=== PATIENT | female | born 1975 | race Caucasian/White ===

== ENCOUNTER 2017-04-12 14:43 | Emergency (ER) | payer BC, OTHER ==
[~2017-04-12] VITALS: Ht 162.6 cm; Wt 67.8 kg
[~2017-04-12 14:43] MED LIST: DEPOPROVERA; notes
[2017-04-12 14:47] VITALS: TEMP 37.1; Ht 162.6 cm; Wt 67.8 kg
[2017-04-12] MEDS ORDERED: SODIUM CHLORIDE 0.9% 1000ML 2,000 ML IV STA (16:22)
[2017-04-12] MEDS ORDERED: DiphenhydrAMINE HCL 50 MG/ML VIAL IV STA (16:22)
[2017-04-12] MEDS ORDERED: METOCLOPRAMIDE HCL INJ 5 MG/ML 2 ML VIAL IV STA (16:22)
--- NOTE | 2017-04-12 16:33 | EMERGENCY ROOM VISIT NOTE ---
History Report prepared by Lilly: Shane Alatorre Under the Supervision of: Dr. Serge Han M.D. First contact with patient: 16:12 Chief Complaint: HEADACHE Stated Complaint: SEVERE HEADACHE FOR 5DAYS History of Present Illness The patient is a 42 year old female who presents to the Emergency Room with complaints of a headache that started 5 days ago. She states her headache came on slowly and felt a pop in her head while she was at the [place]. She complains of nausea and neck pain. She denies nasal congestion, fevers, chills, vomiting, and dysuria. She took Tylenol 3 hours ago and Codeine with minimal improvement of headache. Of note, the patient states she has had limited dietary intake for the past few days. The patient states she has a history of a concussion and was in rehab. Source of History: patient Onset: 5 days ago Position: head Quality: ache Timing: constant Associated Symptoms: + neck pain, + nausea, No fevers, No chills, No vomiting, No urinary symptoms Note: Patient denies nasal congestion. Review of Systems See HPI for pertinent positives and negatives. A total of ten systems were reviewed and were otherwise negative. Past Medical & Surgical Medical Problems: (1) Concussion Surgical Problems: (1) [place] teeth extracted Family History Patient reports no known family medical history. Social History Smoking Status: Never Smoker Drug Use: none Marital Status: Housing Status: lives with family Occupation Status: employed, student Current/Historical Medications Scheduled Medroxyprogesterone Acetate (Depo-Provera), 1 DOSE INJ UD Scheduled PRN Acetaminophen (Tylenol), 1-2 TAB PO Q8 PRN for Headache Allergies Coded Allergies: Sulfa Drugs (Unverified Allergy, Severe, "SENSITIVE", 04/06/12) Physical Exam Vital Signs Date Time Temp Pulse Resp B/P (MAP) Pulse Ox O2 Delivery O2 Flow Rate FiO2 04/12/17 18:26 90 16 110/72 100 04/12/17 17:01 90 04/12/17 17:00 93 16 114/74 100 Room Air 04/12/17 14:47 37.1 106 18 122/74 99 Room Air Physical Exam GENERAL: Awake, alert, uncomfortable appearing, in no distress HENT: Normocephalic, atraumatic. Dry mucous membranes. EYES: Normal conjunctiva. Sclera non-icteric. NECK: Supple. No nuchal rigidity. FROM. No JVD. RESPIRATORY: Clear to auscultation. CARDIAC: Regular rate, normal rhythm. Extremities warm and well perfused. Pulses equal. ABDOMEN: Soft, non-distended. No tenderness to palpation. No rebound or guarding. No masses. RECTAL: Deferred. MUSCULOSKELETAL: Chest examination reveals no tenderness. The back is symmetrical on inspection without obvious abnormality. There is no CVA tenderness to palpation. No joint edema. LOWER EXTREMITIES: Calves are equal size bilaterally and non-tender. No edema. No discoloration. NEURO: Normal sensorium. No sensory or motor deficits noted. Intact. Normal cerebellar function with oxbpij-pi-[id number], alternating palms, zrfe-ic-vjev SKIN: No rash or jaundice noted. Medical Decision & Procedures ER Provider Diagnostic Interpretation: Radiology results as stated below per my review and radiologist interpretation: HEAD CT NONCONTRAST CT DOSE: 537.48 mGy.cm HISTORY: headache TECHNIQUE: Multiaxial CT images of the head were performed without the use of intravenous contrast. Automated exposure control was utilized for this study. A dose lowering technique was utilized adhering to the principles of ALARA. Comparison: None. Findings: The paranasal sinuses and mastoid air cells are clear. The calvarium and skull base are intact. The ventricles and sulci are within normal limits. There is no mass, hematoma, midline shift, or acute infarct. Impression: No acute intracranial abnormality. Electronically signed by: Vipin Krause M.D. 04/12/2017 5:28 PM Dictated Date/Time: 04/12/2017 5:25 PM Laboratory Results 04/12/17 16:46 Red Blood Count 4.43, Mean Corpuscular Volume 93.0, Mean Corpuscular Hemoglobin 30.9, Mean Corpuscular Hemoglobin Concent 33.3, Mean Platelet Volume 11.7, Neutrophils (%) (Auto) 77.3, Lymphocytes (%) (Auto) 13.2, Monocytes (%) (Auto) 7.9, Eosinophils (%) (Auto) 0.7, Basophils (%) (Auto) 0.7, Neutrophils # (Auto) 4.68, Lymphocytes # (Auto) 0.80, Monocytes # (Auto) 0.48, Eosinophils # (Auto) 0.04, Basophils # (Auto) 0.04 04/12/17 16:46 Test 04/12/17 16:46 White Blood Count 6.05 K/uL (4.8-10.8) Red Blood Count 4.43 M/uL (4.2-5.4) Hemoglobin 13.7 g/dL (12.0-16.0) Hematocrit 41.2 % (37-47) Mean Corpuscular Volume 93.0 fL (80-100) Mean Corpuscular Hemoglobin 30.9 pg (25-34) Mean Corpuscular Hemoglobin Concent 33.3 g/dl (32-36) Platelet Count 204 K/uL (130-400) Mean Platelet Volume 11.7 fL (7.4-10.4) Neutrophils (%) (Auto) 77.3 % Lymphocytes (%) (Auto) 13.2 % Monocytes (%) (Auto) 7.9 % Eosinophils (%) (Auto) 0.7 % Basophils (%) (Auto) 0.7 % Neutrophils # (Auto) 4.68 K/uL (1.4-6.5) Lymphocytes # (Auto) 0.80 K/uL (1.2-3.4) Monocytes # (Auto) 0.48 K/uL (0.11-0.59) Eosinophils # (Auto) 0.04 K/uL (0-0.5) Basophils # (Auto) 0.04 K/uL (0-0.2) RDW Standard Deviation 47.3 fL (36.4-46.3) RDW Coefficient of Variation 13.8 % (11.5-14.5) Immature Granulocyte % (Auto) 0.2 % Immature Granulocyte # (Auto) 0.01 K/uL (0.00-0.02) Anion Gap 6.0 mmol/L (3-11) Est Creatinine Clear Calc Drug Dose 72.3 ml/min Estimated GFR () 84.5 Estimated GFR (Non- 72.9 BUN/Creatinine Ratio 4.4 (10-20) Calcium Level 8.8 mg/dl (8.5-10.1) Laboratory results reviewed by me Medications Administered Medications (Trade) Dose Ordered Sig/Sherlyn Route Start Time Stop Time Status Last Admin Dose Admin Sodium Chloride 2,000 ml @ 999 mls/hr Q2H1M STAT IV 04/12/17 16:22 04/12/17 18:22 DC 04/12/17 16:58 999 MLS/HR Metoclopramide HCl (Reglan Inj) 10 mg NOW STAT IV 04/12/17 16:22 04/12/17 16:24 DC 04/12/17 16:59 10 MG Diphenhydramine HCl (Benadryl Inj) 25 mg NOW STAT IV 04/12/17 16:22 04/12/17 16:24 DC 04/12/17 16:58 25 MG Dexamethasone Sodium Phosphate (Dexamethasone Inj Pf) 10 mg NOW ONCE IV 04/12/17 18:15 04/12/17 18:16 DC 04/12/17 18:25 10 MG ED Course 161: The patient was evaluated in room C5. A complete history and physical exam was performed. 1802: I checked on the patient and she is doing well. 1811: I reevaluated the patient. Discussed results and discharge instructions: She verbalized understanding and agreement. The patient is ready for discharge. Medical Decision I reviewed the patient's past medical history, medications, and the nursing notes as described above. The patient's presentation and history were concerning for acute intracranial bleed, trauma, meningitis, encephalitis, increased intracranial pressure, mass or mass effect, facial or dental infection, temporal arteritis, CVA, TIA, acute hypertensive emergency, sinusitis, and carbon monoxide exposure. The patient is a 42-year-old woman with a past medical history of concussion remotely who presents emergency Department with progressive headache over the past several days that his been constant with associated neck pain per hpi. Patient was seen by her PCP who sent her to the emergency department for a CT scan. On arrival the patient is uncomfortable but no acute distress, afebrile with stable vital signs. On exam the patient is neurologically intact including normal cerebellar function with jtuuat-ec-vwug, alternating palms, lban-bn-svyv. Labs unremarkable including wbc wnl. Neck supple and afebrile. Meningitis not likely. Slow progression making SAH less likely. CT head negative. Patient feeling significantly improved after IV fluids and migraine cocktail. Given additional dose of dexamethasone for further anti-inflammatory effect. Patient agreeable for discharge and will follow-up with her doctor. Findings and plan for follow-up reviewed with patient. Patient agreeable and d/c 'd per discharge instructions. Medication Reconcilliation Current Medication List: was personally reviewed by me Blood Pressure Screening Patient's blood pressure: Normal blood pressure Blood pressure disposition: Did not require urgent referral Impression Primary Impression: Tension headache Scribe Attestation The scribe's documentation has been prepared under my direction and personally reviewed by me in its entirety. I confirm that the note above accurately reflects all work, treatment, procedures, and medical decision making performed by me. Departure Information Dispostion Home / Self-Care Referrals No Doctor, Assigned (PCP) Patient Instructions ED Headache Tension, My [facility] Additional Instructions Please follow up with your primary care physician in the next 1-3 days for re- evaluation. You likely had a tension headache, which may have been provoked by mild dehydration. Otherwise, your exam, lab results, CT scan of your head did not show signs of an emergent condition at this time. Acetaminophen or ibuprofen for pain and fevers as needed. Drink plenty of fluids to ensure hydration. Return to the emergency department for worsening symptoms as described in the accompanying instructions.
[2017-04-12] MEDS ORDERED: DPPI400 INJ (16:53)
[2017-04-12] MEDS ORDERED: ACET-1256 PO (16:53)
[2017-04-12 17:09] LABS: BASO % 0.7 %; BASO ABS # 0.04 K/uL (0-0.2); EOS % 0.7 %; EOS ABS # 0.04 K/uL (0-0.5); HEMATOCRIT 41.2 % (37-47); HEMOGLOBIN 13.7 g/dL (12.0-16.0); IG# 0.01 K/uL (0.00-0.02); LYMPH % 13.2 %; MEAN CORPUSCULAR HEMOGLOBIN 30.9 pg (25-34); MEAN CORPUSCULAR HGB CONC 33.3 g/dl (32-36); MEAN PLATELET VOLUME 11.7 fL (7.4-10.4); MONO % 7.9 %; MONO ABS # 0.48 K/uL (0.11-0.59); NEUT % 77.3 %; NEUT ABS # 4.68 K/uL (1.4-6.5); PLATELET COUNT 204 K/uL (130-400); RED CELL DISTRIBUTION WIDTH CV 13.8 % (11.5-14.5); RED CELL DISTRIBUTION WIDTH SD 47.3 fL (36.4-46.3); WHITE BLOOD COUNT 6.05 K/uL (4.8-10.8)
[2017-04-12 17:26] LABS: CALCIUM 8.8 mg/dl (8.5-10.1); CREATININE 0.96 mg/dl (0.60-1.20); POTASSIUM 3.4 mmol/L (3.5-5.1)
--- NOTE | 2017-04-12 17:29 | DIAGNOSTIC IMAGING REPORT ---
HEAD CT NONCONTRAST CT DOSE: 537.48 mGy.cm HISTORY: headache TECHNIQUE: Multiaxial CT images of the head were performed without the use of intravenous contrast. Automated exposure control was utilized for this study. A dose lowering technique was utilized adhering to the principles of ALARA. Comparison: None. Findings: The paranasal sinuses and mastoid air cells are clear. The calvarium and skull base are intact. The ventricles and sulci are within normal limits. There is no mass, hematoma, midline shift, or acute infarct. Impression: No acute intracranial abnormality. Electronically signed by: Vipin Krause M.D. 04/12/2017 5:28 PM Dictated Date/Time: 04/12/2017 5:25 PM
[2017-04-12] MEDS ORDERED: DEXAMETHASONE **PF** INJ 10 MG/ML VIAL IV ONE (18:15)
[2017-04-12 18:26] VITALS: BP 110/72; PULSE 90; O2SAT 100
== END 2017-04-12 18:27 | disposition home or self-care (01) ==
LOC: C.EDB 14:44 → C.EDC 18:27
DX: G44.209 Tension-type headache, unspecified, not intractable (principal)

== ENCOUNTER → 2017-04-18 | Outpatient (CLI) | payer OTHER ==
[~2017-04-18] MED LIST changes: +ACET-1256 PO; -DEPOPROVERA; +DPPI400 INJ; -notes
--- NOTE | 2017-04-18 13:36 | DIAGNOSTIC IMAGING REPORT ---
TWO VIEW CHEST CLINICAL HISTORY: Cough. Hyperhydrosis. Nausea. Dizziness. FINDINGS: PA and lateral chest radiographs are compared to study dated 08/18/2006. The cardiomediastinal silhouette is unremarkable. The lungs and pleural spaces are clear. There is no pneumothorax. The bony thorax appears intact. IMPRESSION: No active disease in the chest. Electronically signed by: Jules Alberto M.D. 04/18/2017 1:35 PM Dictated Date/Time: 04/18/2017 1:34 PM
== END | disposition home or self-care (01) ==
LOC: C.RAD 12:54
PROVIDERS: ATTEND Nurse Practitioner Family
DX: R05 Cough (principal); R61 Generalized hyperhidrosis; R11.0 Nausea; R42 Dizziness and giddiness; R51 Headache

== ENCOUNTER → 2017-04-21 | Outpatient (CLI) | payer OTHER ==
--- NOTE | 2017-04-21 11:25 | DIAGNOSTIC IMAGING REPORT ---
BRAIN WITHOUT CONTRAST HISTORY: 42 years-old Female MAE,DIZZINESS,NAUSEA,GENERALIZED HYPERHIDROSIS chronic headaches with nausea and dizziness COMPARISON: MRI brain 04/06/2012 TECHNIQUE: Planar multiplanar multisequence MRI of the brain was obtained without contrast. FINDINGS: There is no restricted diffusion to suggest acute infarction. The midline structures including the corpus callosum, brainstem, optic chiasm, infundibulum, pituitary and pineal glands appear unremarkable the sagittal T1 series. No cerebellar tonsillar herniation. Minimal degenerative changes of the imaged cervical spine. No acute intracranial hemorrhage, midline shift, abnormal extra-axial collections, intracranial mass or hydrocephalus. Minimal punctate foci of T2/FLAIR prolongation are seen within the subcortical white matter of the frontal lobes as seen on image 6 and 8 of series 7. Brain parenchyma otherwise unremarkable. The major flow voids at the level of the skull base appear patent. Orbits appear symmetric and unremarkable. Mastoid air cells are clear. Minimal ethmoid sinus disease. Hypoplasia of the right frontal sinus. Scalp, calvarium and soft tissues are unremarkable. IMPRESSION: 1. No acute intracranial abnormality. 2. Minimal punctate foci of increased T2/FLAIR signal within the subcortical frontal lobes are likely of no clinical significance. Gliosis from chronic migraines is a differential consideration. The above report was generated using voice recognition software. It may contain grammatical, syntax or spelling errors. Electronically signed by: Mauricio Gonzalez M.D. 04/21/2017 11:24 AM Dictated Date/Time: 04/21/2017 11:19 AM
== END | disposition home or self-care (01) ==
LOC: C.MRI 10:53
PROVIDERS: ATTEND Nurse Practitioner Family
DX: R51 Headache (principal); R42 Dizziness and giddiness; R11.0 Nausea; R61 Generalized hyperhidrosis

== ENCOUNTER → 2017-05-19 | Outpatient (CLI) | payer OTHER ==
--- NOTE | 2017-05-19 08:56 | DIAGNOSTIC IMAGING REPORT ---
ABDOMINAL ULTRASOUND, RIGHT UPPER QUADRANT HISTORY: ELEVATED LIVER ENZYMES,ENLARGED LIVER. COMPARISON: Abdomen and pelvis CT 07/24/2013. FINDINGS: Pancreas: The pancreatic tail is obscured by overlying bowel gas. The remaining portions of the pancreas are within normal limits. Liver: Unremarkable. Gallbladder: No gallbladder wall thickening. No gallstones. A few small polyps with the largest measuring 7 mm. CBD: 5 mm. Right kidney: No hydronephrosis. IMPRESSION: 1. A few small gallbladder polyps. No gallstones. 2. Otherwise, normal abdominal ultrasound. Electronically signed by: Vipin Krause M.D. 05/19/2017 8:54 AM Dictated Date/Time: 05/19/2017 8:52 AM
== END | disposition home or self-care (01) ==
LOC: C.ULTR 08:13
PROVIDERS: ATTEND Nurse Practitioner Family
DX: R74.8 Abnormal levels of other serum enzymes (principal); K82.4 Cholesterolosis of gallbladder

== ENCOUNTER 2022-08-20 14:13 | Observation (INO) ==
[2022-08-20] MEDS ORDERED: ONDANSETRON INJ 2 MG/ML 2 ML VIAL IV STA (14:35)
[2022-08-20] MEDS ORDERED: MoRPHine SULFATE 4 MG/ML 1 ML CARP\\VIAL IV STA (14:35)
[2022-08-20] MEDS ORDERED: SODIUM CHLORIDE 0.9% 1000ML 1,000 ML IV ONE (14:35)
[2022-08-20 14:59] LABS: Basophils # (auto) 0.04 K/uL (0-0.2); Basophils % (auto) 0.5 %; Eosinophils # (auto) 0.03 K/uL (0-0.50); Eosinophils % (auto) 0.4 %; Hematocrit (blood only) 41.1 % (37.0-47.0); Hemoglobin 13.6 g/dl (12.0-16.0); Immature Granulocytes # (auto) 0.04 K/uL (0.01-0.20); Immature Granulocytes % (auto) 0.5 %; Lymphocytes # (auto) 0.77 K/uL (1.2-3.4); Lymphocytes % (auto) 9.3 %; Mean Corpuscular Hemoglobin 29.5 pg (25.0-34.0); Mean Corpuscular Hgb Conc 33.1 g/dL (32.0-36.0); Mean Corpuscular Volume 89.2 fL (80.0-100.0); Mean Platelet Volume 12.6 fL (9.4-12.4); Monocytes # (auto) 0.38 K/uL (0.11-0.59); Monocytes % (auto) 4.6 %; Neutrophils # (auto) 7.03 K/uL (1.40-6.50); Neutrophils % (auto) 84.7 %; Platelet Count 206 K/uL (130-400); RDW Coefficient of Variation 12.8 % (11.5-14.5); RDW Standard Deviation 41.8 fL (36.4-46.3); Red Blood Count 4.61 M/uL (4.20-5.40); White Blood Count 8.29 K/ul (4.8-10.8)
[2022-08-20 15:00] LABS: iSTAT Creatinine 0.7 mg/dl (0.6-1.3); iSTAT Hemoglobin 12.2 g/dl (12.0-16.0); iSTAT Ionized Calcium 1.11 mmol/l (1.12-1.32); iSTAT Potassium 3.9 mmol/L (3.3-5.0)
[2022-08-20 15:04] LABS: Alanine Aminotransferase 248 U/L (7-52); Albumin Level 4.4 gm/dl (3.4-5.0); Alkaline Phosphatase 107 U/L (34-104); Anion Gap 9 (3-11); Aspartate Aminotransferase 250 U/L (13-39); BUN Creatinine Ratio 9.2 (10-20); Bilirubin Direct 0.1 mg/dl (0-0.2); Bilirubin,Total 0.7 mg/dl (0.2-1.0); Blood Urea Nitrogen 8 mg/dl (6-23); Calcium 9.1 mg/dl (8.6-10.3); Carbon Dioxide 22 mmol/L (21-32); Chloride 103 mmol/L (98-107); Est GFR (African American) 91.9 ml/min; Est GFR (Non-African American) 79.3 ml/min; Glucose 133 mg/dl (70-99(Fasting)); Lipase 17 U/L (11-82); Potassium 3.7 mmol/L (3.5-5.1); Sodium 134 mmol/L (136-145); Total Protein 7.2 gm/dl (6.0-8.3)
[2022-08-20] MEDS ORDERED: fentaNYL citrate PF 100 MCG/2 ML VIAL IV STA (15:05)
[2022-08-20] MEDS ORDERED: OPTIRAY 320 500ml IV ONE (15:21)
[2022-08-20 15:24] LABS: Partial Thromboplastin Ratio 0.9; Partial Thromboplastin Time 24.9 Seconds (21.0-31.0); Prothrombin Time 10.9 Seconds (9.0-12.0)
--- NOTE | 2022-08-20 15:27 | Emergency Department Note ---
History of Present Illness General Chief Complaint: Cardiac Assessment Time Seen by Provider: 08/20/22 14:31 History of Present Illness Provider Complaint: abdominal pain Onset (ago): 30 minute(s) Pain Consistency: constant Location: epigastric Radiation: back and chest Severity: severe Maximum Pain Intensity: 10 Current Pain Intensity: 9 Quality: + stabbing and + sharp Relieved By: + nothing Exacerbated By: + nothing Context: + recent surgery/procedure (Patient had laparoscopic removal of her gallbladder [address] Garrido at [facility]); no foreign travel, no possible food poisoning, no sick contacts, no recent antibiotic use or no recent injury Associated Symptoms: + nausea and + vomiting; no diarrhea, no fever, no chills, no dysuria, no hematemesis, no hematochezia, no melena and no hematuria Related Data Patient Confirmed : No Home Medications Medication Instructions Recorded Confirmed Type medroxyprogesterone 150 mg/mL 150 mg IM .[id number] 08/28/18 07/07/22 History intramuscular syringe clonazepam 0.5 mg tablet 0.25 mg PO DAILY PRN Anxiety 12/16/19 07/07/22 History meclizine 25 mg tablet 25 mg PO DIRECTED PRN 12/16/19 07/07/22 History DIZZINESS/VERTIGO loperamide 2 mg capsule 2 mg PO Q6H PRN Diarrhea 07/07/22 07/07/22 History ondansetron 8 mg disintegrating 4 mg translingual Q8H PRN 07/07/22 07/07/22 History tablet NAUSEA/VOMITING Allergies Allergy/AdvReac Type Severity Reaction Status Date / Time Sulfa (Sulfonamide Allergy Severe "SENSITIVE" Verified 07/07/22 21:49 Antibiotics) amoxicillin Allergy Intermediate ITCHY RASH Verified 07/07/22 21:49 AFTER 4 DAYS OF STARTING Past Med/Surg History Medical History Closed fracture of lateral portion of left tibial plateau Dizziness of unknown etiology High-frequency hearing loss of left ear History of anemia Hydronephrosis with renal and ureteral calculus obstruction Renal colic Renal colic Seasonal allergies Surgical History Rosser teeth extracted Family History Grandfather (Paternal) No problems noted. 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 How many Children do You have: 3 Feels Safe at Home: Yes during the past year weight has: remained stable Physical Exam Vital Signs: Vital Signs - 24 hr 08/20/22 14:20 08/20/22 14:24 08/20/22 15:10 Temperature 36.5 C Temperature Source Oral Pulse Rate 75 72 Pulse Rate [Apical ] 83 Pulse Rhythm Pulse Rhythm [Apic al] Pulse Strength [Ap ical] Respiratory Rate 22 20 Respiratory Effort / Characteristics Non-Labored Sponta neous Respiratory Depth Normal Respiratory Patter n Regular Blood Pressure 101/60 Blood Pressure [Ri ght Arm] 126/79 Blood Pressure Ellen n 73 Blood Pressure Ellen n [Right Arm] 94 Blood Pressure Pos ition Semi-fowlers Pulse Oximetry 99 97 Oxygen Delivery Me thod Room Air Room Air Sepsis Recent Feve r Within 48 Hours No Sepsis New/Unexpla ined Change in Men nataly Status N/A Sepsis Action Take n by Nursing No Action Required 08/20/22 15:00 08/20/22 16:20 08/20/22 16:45 Temperature Temperature Source Pulse Rate Pulse Rate [Apical ] 92 H 93 H Pulse Rhythm Pulse Rhythm [Apic al] Pulse Strength [Ap ical] Respiratory Rate 20 18 Respiratory Effort / Characteristics Spontaneous Respiratory Depth Normal Respiratory Patter n Blood Pressure Blood Pressure [Ri ght Arm] 131/75 118/72 Blood Pressure Ellen n Blood Pressure Ellen n [Right Arm] 93 87 Blood Pressure Pos ition Pulse Oximetry 98 98 Oxygen Delivery Me thod Room Air Room Air Room Air Sepsis Recent Feve r Within 48 Hours Sepsis New/Unexpla ined Change in Men nataly Status Sepsis Action Take n by Nursing 08/20/22 15:31 08/20/22 15:31 Temperature Temperature Source Pulse Rate 107 H Pulse Rate [Apical ] 106 H Pulse Rhythm Regular Pulse Rhythm [Apic al] Regular Pulse Strength [Ap ical] Normal Respiratory Rate 20 24 Respiratory Effort / Characteristics Non-Labored Sponta neous Respiratory Depth Normal Respiratory Patter n Regular Blood Pressure Blood Pressure [Ri ght Arm] 123/57 L Blood Pressure Ellen n Blood Pressure Ellen n [Right Arm] 79 Blood Pressure Pos ition Pulse Oximetry 98 97 Oxygen Delivery Me thod Room Air Room Air Sepsis Recent Feve r Within 48 Hours Sepsis New/Unexpla ined Change in Men nataly Status Sepsis Action Take n by Nursing Physical Exam: Physical Exam HENT: Exam performed. -Head: Normocephalic and atraumatic. -Right Ear: External ear normal. No mastoid erythema -Left Ear: External ear normal. No mastoid erythema -Mouth/Throat: The oropharynx is clear and moist. No trismus in the jaw. No dental abscesses or uvula swelling. No oropharyngeal exudate or tonsillar abscesses. EYES: Conjunctivae and EOM are normal.Right eye exhibits no discharge. Left eye exhibits no discharge. No scleral icterus. NECK: Normal range of motion. Neck supple. No JVD present. No tracheal deviation and normal range of motion present. CV: Normal rate, regular rhythm, normal heart sounds and intact distal pulses. There is no peripheral edema. Palpable radial pulses bue. PULM/CHEST: Effort normal and breath sounds normal. No respiratory distress. No stridor. She has no wheezes. She has no rales. -Chest Wall: She exhibits no tenderness. ABD: Laparoscopic surgical incisions are clean and dry over the anterior abdominal wall. The abdomen is soft. She has no distension.There is tenderness to palpation of the left upper quadrant and epigastric area. NEURO: Motor and sensation grossly intact. SKIN: Skin is warm and dry. She is not diaphoretic. PSYCH: She has a normal mood and affect. Behavior is normal. Judgment and thought content normal. Course Course 1431: The patient was evaluated in room B2. A complete history and physical exam was performed Cardiac monitoring: An order was placed for continuous cardiac monitoring. The monitor shows a rate of 70 with sinus rhythm interpreted by me 1634: Vital signs stable. On reassessment the patient states her pain was better status post morphine and fentanyl however pain is starting to come back. Labs show AST 250 ALT 248 alkaline phosphatase 107. Lipase within normal limits. White blood cell count within normal limits. CTA of the chest showed no pulmonary emboli or pneumonia. CT of the abdomen pelvis showed trace pneumoperitoneum which was thought to be postsurgical. There is a small amount of perihepatic operative bed fluid which is reported to be most likely normal in the early postoperative setting however a bile leak is also on the differential. The common bile duct was top normal in caliber. I discussed the case with Dr. Thornton on-call general surgery. Given the patient's increased liver function tests and nearly elevated common bile duct diameter as well as continued pain both he and I feel that the patient should be admitted to the hospital. He recommends that the patient be admitted to the medicine team with a GI consult for possible MRCP and HIDA scan to make sure that there are no choledocholithiasis or bile leak. We will contact [facility] hospitalist for the admission. Administered Medications Discontinued Medications Fentanyl Citrate (Fentanyl Citrate Pf 100 Mcg/2 Ml Vial) 25 mcg IV NOW STA Stop: 08/20/22 15:06 Last Admin: 08/20/22 15:09 Dose: 25 mcg Documented By: ROSA Hydromorphone HCl (Hydromorphone Inj 0.5 Mg/0.5 Ml Syr) 0.5 mg IV NOW STA Stop: 08/20/22 16:34 Last Admin: 08/20/22 16:51 Dose: 0.5 mg Documented By: ROSA Sodium Chloride (Nss 1000ml) 1,000 mls @ 999 mls/hr IV .Q1H1M ONE Stop: 08/20/22 15:35 Last Infusion: 08/20/22 15:48 Dose: 0 mls/hr Documented By: Admin: 08/20/22 14:48 Dose: 999 mls/hr Documented By: Ioversol (Optiray 320 500ml) 112 ml IV ONCE ONE Stop: 08/20/22 15:22 Last Admin: 08/20/22 15:21 Dose: 112 ml Documented By: NACHO Morphine Sulfate (Morphine Sulfate 4 Mg/Ml 1 Ml Carp\\Vial) 4 mg IV NOW STA Stop: 08/20/22 14:36 Last Admin: 08/20/22 14:47 Dose: 4 mg Documented By: Ondansetron HCl (Ondansetron Inj 2 Mg/Ml 2 Ml Vial) 4 mg IV NOW STA Stop: 08/20/22 14:36 Last Admin: 08/20/22 14:47 Dose: 4 mg Documented By: AB Medical Decision Making Laboratory Data Attestation: I reviewed the patient's lab results. 08/20/22 14:00 08/20/22 14:00 Lab Results 08/20/22 08/20/22 08/20/22 Range/Units 14:00 14:00 14:00 WBC 8.29 (4.8-10.8) K/ul RBC 4.61 (4.20-5.40) M/uL Hgb 13.6 (12.0-16.0) g/dl POC Hgb (12.0-16.0) g/dl Hct 41.1 (37.0-47.0) % POC Hct (37-47) % MCV 89.2 (80.0-100.0) fL MCH 29.5 (25.0-34.0) pg MCHC 33.1 (32.0-36.0) g/dL RDW Std Deviation 41.8 (36.4-46.3) fL RDW Coeff of Karl 12.8 (11.5-14.5) % Plt Count 206 (130-400) K/uL MPV 12.6 H (9.4-12.4) fL Immature Gran % (Auto) 0.5 % Neut % (Auto) 84.7 % Lymph % (Auto) 9.3 % [place] % (Auto) 4.6 % Eos % (Auto) 0.4 % Baso % (Auto) 0.5 % Neut # (Auto) 7.03 H (1.40-6.50) K/uL Lymph # (Auto) 0.77 L (1.2-3.4) K/uL [place] # (Auto) 0.38 (0.11-0.59) K/uL Eos # (Auto) 0.03 (0-0.50) K/uL Baso # (Auto) 0.04 (0-0.2) K/uL Immature Gran # (Auto) 0.04 (0.01-0.20) K/uL PT 10.9 (9.0-12.0) Seconds INR 1.0 (0.9-1.1) APTT 24.9 (21.0-31.0) Seconds PTT Ratio 0.9 POC Sodium (135-144) mmol/L Sodium 134 L (136-145) mmol/L POC Potassium (3.3-5.0) mmol/L Potassium 3.7 (3.5-5.1) mmol/L POC Chloride (101-112) mmol/L Chloride 103 (98-107) mmol/L Carbon Dioxide 22 (21-32) mmol/L POC Total CO2 (24-31) mmol/L Anion Gap 9 (3-11) POC Anion Gap (16-25) mmol/L POC BUN (7-18) mg/dl BUN 8 (6-23) mg/dl Creatinine 0.87 (0.6-1.2) mg/dl POC Creatinine (0.6-1.3) mg/dl Est Cr Clr Drug Dosing Not Reportable Est GFR ( Amer) 91.9 ml/min Est GFR (Non-Af Amer) 79.3 ml/min BUN/Creatinine Ratio 9.2 L (10-20) Glucose 133 H (70-99(Fasting)) mg/dl POC Glucose (other) (70-99) mg/dl Calcium 9.1 (8.6-10.3) mg/dl POC Ioniz Calcium Rin (1.12-1.32) mmol/l Total Bilirubin 0.7 (0.2-1.0) mg/dl Direct Bilirubin 0.1 (0-0.2) mg/dl AST 250 H (13-39) U/L ALT 248 H (7-52) U/L Alkaline Phosphatase 107 H (34-104) U/L Total Protein 7.2 (6.0-8.3) gm/dl Albumin 4.4 (3.4-5.0) gm/dl Lipase 17 (11-82) U/L 08/20/22 Range/Units 14:44 WBC (4.8-10.8) K/ul RBC (4.20-5.40) M/uL Hgb (12.0-16.0) g/dl POC Hgb 12.2 (12.0-16.0) g/dl Hct (37.0-47.0) % POC Hct 36 L (37-47) % MCV (80.0-100.0) fL MCH (25.0-34.0) pg MCHC (32.0-36.0) g/dL RDW Std Deviation (36.4-46.3) fL RDW Coeff of Karl (11.5-14.5) % Plt Count (130-400) K/uL MPV (9.4-12.4) fL Immature Gran % (Auto) % Neut % (Auto) % Lymph % (Auto) % [place] % (Auto) % Eos % (Auto) % Baso % (Auto) % Neut # (Auto) (1.40-6.50) K/uL Lymph # (Auto) (1.2-3.4) K/uL [place] # (Auto) (0.11-0.59) K/uL Eos # (Auto) (0-0.50) K/uL Baso # (Auto) (0-0.2) K/uL Immature Gran # (Auto) (0.01-0.20) K/uL PT (9.0-12.0) Seconds INR (0.9-1.1) APTT (21.0-31.0) Seconds PTT Ratio POC Sodium 136 (135-144) mmol/L Sodium (136-145) mmol/L POC Potassium 3.9 (3.3-5.0) mmol/L Potassium (3.5-5.1) mmol/L POC Chloride 103 (101-112) mmol/L Chloride (98-107) mmol/L Carbon Dioxide (21-32) mmol/L POC Total CO2 22 L (24-31) mmol/L Anion Gap (3-11) POC Anion Gap 16.0 (16-25) mmol/L POC BUN 7 (7-18) mg/dl BUN (6-23) mg/dl Creatinine (0.6-1.2) mg/dl POC Creatinine 0.7 (0.6-1.3) mg/dl Est Cr Clr Drug Dosing Est GFR ( Amer) ml/min Est GFR (Non-Af Amer) ml/min BUN/Creatinine Ratio (10-20) Glucose (70-99(Fasting)) mg/dl POC Glucose (other) 144 H (70-99) mg/dl Calcium (8.6-10.3) mg/dl POC Ioniz Calcium Rin 1.11 L (1.12-1.32) mmol/l Total Bilirubin (0.2-1.0) mg/dl Direct Bilirubin (0-0.2) mg/dl AST (13-39) U/L ALT (7-52) U/L Alkaline Phosphatase (34-104) U/L Total Protein (6.0-8.3) gm/dl Albumin (3.4-5.0) gm/dl Lipase (11-82) U/L Imaging Data Radiologist's Impression: Abdomen/Pelvis CT 08/20/22 14:36 CT OF THE ABDOMEN AND PELVIS WITH CONTRAST CLINICAL HISTORY: Postoperative chest and abdominal pain. Cholecystectomy 4 days ago. COMPARISON STUDY: CT of the abdomen and pelvis July 08, 2022. TECHNIQUE: Following IV administration of 112 mL of Optiray, axial images of the abdomen and pelvis were obtained from the lung bases to the proximal femurs. Images were reviewed in the axial, sagittal, and coronal planes. IV contrast was administered without complication. Automated exposure control was utilized for the study. A dose lowering technique was utilized adhering to the principles of ALARA. CT DOSE: 852.51 mGy.cm FINDINGS: Trace pneumoperitoneum under the right hemidiaphragm is postsurgical. There is a small amount of perihepatic/operative bed fluid. No well-defined fluid collection is present. There is no hematoma. Caliber of the common bile duct is at upper limits of normal, measuring 6 mm. This has increased in caliber since CT of July 08, 2022. There is no peripancreatic stranding or fluid. Spleen, adrenal glands are unremarkable. There is a left renal cyst. A few renal lesions are too small to characterize. There is no evidence for a bowel obstruction. The caliber and wall thickness of small and large bowel are normal. The appendix is normal. There is no lymphadenopathy. Major vasculature is patent. There are no hepatic lesions. IMPRESSION: 1. Trace pneumoperitoneum which is postsurgical. Small amount of perihepatic/operative bed fluid. This is also within normal limits in the early postoperative setting. Other etiologies such as a bile leak are within the differential but considered less likely. 2. Top normal caliber common bile duct. This could be correlated with liver function tests. 3. No bowel obstruction. No bowel wall thickening. Normal appendix. ACT 112: Negative or not required by law. Electronically signed by: Adrian Matute M.D. 08/20/2022 4:02 PM Chest CTA 08/20/22 14:36 CT ANGIOGRAPHY OF THE CHEST, PULMONARY EMBOLUS PROTOCOL CLINICAL HISTORY: Postoperative chest and abdominal pain. Evaluate for pulmonary embolus. COMPARISON STUDY: Chest radiograph May 09, 2018. TECHNIQUE: Following IV administration of 112 mL of Optiray, helical axial images of the chest were obtained utilizing the pulmonary embolus protocol. Maximal intensity projections and sagittal and coronal reformats were viewed on an independent 3D workstation. IV contrast was administered without complication. Automated exposure control was utilized for the study. A dose lowering technique was utilized adhering to the principles of ALARA. FINDINGS: No pulmonary emboli are identified. There is no thoracic aortic dissection. The size of the heart is normal. There is no pericardial effusion. No pneumothorax or pleural effusion is present. There is no consolidation to suggest pneumonia. Groundglass opacities favor atelectasis. Trace pneumoperitoneum under the right hemidiaphragm is likely postsurgical. There is trace fluid within the cholecystectomy bed. These findings are better depicted on the CT of the abdomen and pelvis which will be reported separately. 3 mm right renal calculus. No thoracic lymphadenopathy. IMPRESSION: 1. No pulmonary emboli identified. 2. No acute intrathoracic findings. 3. Trace pneumoperitoneum and a small amount of fluid within the cholecystectomy bed. These findings are likely postoperative and better depicted on the CT of the abdomen and pelvis which will be reported separately. ACT 112: Negative or not required by law. Electronically signed by: Adrian Matute M.D. 08/20/2022 3:54 PM ECG Data Attestation: I personally reviewed and interpreted this ECG as follows: Indication: abdominal pain and chest pain Rate (beats per minute): 69 Rhythm: normal sinus Findings: no ST depression, no ST elevation or no prolonged QT MDM Narrative 1431: The patient was evaluated in room B2. A complete history and physical exam was performed Cardiac monitoring: An order was placed for continuous cardiac monitoring. The monitor shows a rate of 70 with sinus rhythm interpreted by me 1634: Vital signs stable. On reassessment the patient states her pain was bet ter status post morphine and fentanyl however pain is starting to come back. Labs show AST 250 ALT 248 alkaline phosphatase 107. Lipase within normal limits. White blood cell count within normal limits. CTA of the chest showed no pulmonary emboli or pneumonia. CT of the abdomen pelvis showed trace pneumoperitoneum which was thought to be postsurgical. There is a small amount of perihepatic operative bed fluid which is reported to be most likely normal in the early postoperative setting however a bile leak is also on the differential. The common bile duct was top normal in caliber. I discussed the case with Dr. Thornton on-call general surgery. Given the patient's increased liver function tests and nearly elevated common bile duct diameter as well as continued pain both he and I feel that the patient should be admitted to the hospital. He recommends that the patient be admitted to the medicine team with a GI consult for possible MRCP and HIDA scan to make sure that there are no choledocholithiasis or bile leak. We will contact [facility] hospitalist for the admission. Impression & Plan Transaminitis, Post-op pain Discharge Plan Visit Data Chief Complaint: Cardiac Assessment ED Provider: Stoney Truong Discharge Problem: Transaminitis, Post-op pain Patient Disposition: Admitted As Inpatient Forms Stand Alone Forms: My [facility] Prescriptions Prescriptions: No Action meclizine 25 mg tablet 25 mg PO DIRECTED PRN (Reason: DIZZINESS/VERTIGO) clonazepam 0.5 mg tablet 0.25 mg PO DAILY PRN (Reason: Anxiety) medroxyprogesterone 150 mg/mL syringe 150 mg IM .[id number] loperamide [Imodium] 2 mg Capsule 2 mg PO Q6H PRN (Reason: Diarrhea) ondansetron 8 mg tablet,disintegrating 4 mg translingual Q8H PRN (Reason: NAUSEA/VOMITING) Referrals Referrals: Mya Carrillo CRNP [Primary Care Provider] -
--- NOTE | 2022-08-20 15:57 | CT Scan Report ---
CT ANGIOGRAPHY OF THE CHEST, PULMONARY EMBOLUS PROTOCOL CLINICAL HISTORY: Postoperative chest and abdominal pain. Evaluate for pulmonary embolus. COMPARISON STUDY: Chest radiograph May 09, 2018. TECHNIQUE: Following IV administration of 112 mL of Optiray, helical axial images of the chest were o btained utilizing the pulmonary embolus protocol. Maximal intensity projections and sagittal and cor onal reformats were viewed on an independent 3D workstation. IV contrast was administered without co mplication. Automated exposure control was utilized for the study. A dose lowering technique was ut ilized adhering to the principles of ALARA. FINDINGS: No pulmonary emboli are identified. There is no thoracic aortic dissection. The size of th e heart is normal. There is no pericardial effusion. No pneumothorax or pleural effusion is present. There is no consolidation to suggest pneumonia. Groundglass opacities favor atelectasis. Trace pneumo peritoneum under the right hemidiaphragm is likely postsurgical. There is trace fluid within the chol ecystectomy bed. These findings are better depicted on the CT of the abdomen and pelvis which will be reported separately. 3 mm right renal calculus. No thoracic lymphadenopathy. IMPRESSION: 1. No pulmonary emboli identified. 2. No acute intrathoracic findings. 3. Trace pneumoperitoneum and a small amount of fluid within the cholecystectomy bed. These findings are likely postoperative and better depicted on the CT of the abdomen and pelvis which will be report ed separately. ACT 112: Negative or not required by law. Electronically signed by: Adrian Matute M.D. 08/20/2022 3:54 PM
--- NOTE | 2022-08-20 16:04 | CT Scan Report ---
CT OF THE ABDOMEN AND PELVIS WITH CONTRAST CLINICAL HISTORY: Postoperative chest and abdominal pain. Cholecystectomy 4 days ago. COMPARISON STUDY: CT of the abdomen and pelvis July 08, 2022. TECHNIQUE: Following IV administration of 112 mL of Optiray, axial images of the abdomen and pelvis w ere obtained from the lung bases to the proximal femurs. Images were reviewed in the axial, sagittal, and coronal planes. IV contrast was administered without complication. Automated exposure control w as utilized for the study. A dose lowering technique was utilized adhering to the principles of LISY Savage. CT DOSE: 852.51 mGy.cm FINDINGS: Trace pneumoperitoneum under the right hemidiaphragm is postsurgical. There is a small amou nt of perihepatic/operative bed fluid. No well-defined fluid collection is present. There is no hemat young. Caliber of the common bile duct is at upper limits of normal, measuring 6 mm. This has increased in caliber since CT of July 08, 2022. There is no peripancreatic stranding or fluid. Spleen, adrena l glands are unremarkable. There is a left renal cyst. A few renal lesions are too small to character ize. There is no evidence for a bowel obstruction. The caliber and wall thickness of small and large bowel are normal. The appendix is normal. There is no lymphadenopathy. Major vasculature is patent. T here are no hepatic lesions. IMPRESSION: 1. Trace pneumoperitoneum which is postsurgical. Small amount of perihepatic/operative bed fluid. Thi s is also within normal limits in the early postoperative setting. Other etiologies such as a bile le ak are within the differential but considered less likely. 2. Top normal caliber common bile duct. This could be correlated with liver function tests. 3. No bowel obstruction. No bowel wall thickening. Normal appendix. ACT 112: Negative or not required by law. Electronically signed by: Adrian Matute M.D. 08/20/2022 4:02 PM
[2022-08-20] MEDS ORDERED: HYDROmorphone INJ 0.5 MG/0.5 ML SYR IV STA (16:33)
[2022-08-20 17:15] LABS: Appearance Urine Clear (Clear); Bacteria Urine Automated Negative (Negative); Bilirubin Urine Negative (Negative); Blood Urine 1+ (Negative); Cast Urine Automated 0 /lpf (0-5); Color Urine Yellow; Epithelial Cell Urine Auto >30 /lpf (0-5); Glucose Urine UA Negative (Negative); Ketones Urine 1+ (Negative); Leukocyte Esterase Urine Negative (Negative); Nitrite Urine Negative (Negative); Protein Urine Negative (Negative); Specific Gravity Urine 1.045 (1.000-1.030); Urobilinogen Urine Negative (Negative); pH Urine 5.5 (4.5-7.5)
[2022-08-20] MEDS ORDERED: oxyCODONE HCL IR 5 MG TAB (IMMEDIATE RELEASE) PO PRN ×2 (19:48)
[2022-08-20] MEDS ORDERED: ONDANSETRON INJ 2 MG/ML 2 ML VIAL IV PRN (19:48)
[2022-08-20] MEDS ORDERED: MoRPHine SULFATE 2 MG/ML CARP IV PRN (19:48)
[2022-08-20] MEDS: SODIUM CHLORIDE 0.9% 1000ML 1,000 ML IV SCH (20:05)
[2022-08-20] MEDS: MoRPHine SULFATE 4 MG/ML 1 ML CARP\\VIAL IV PRN ×2 (20:05→23:00)
[2022-08-21] MEDS: SODIUM CHLORIDE 0.9% 1000ML 1,000 ML IV SCH (05:31)
--- NOTE | 2022-08-21 07:33 | History & Physical Report ---
Date of Service August 21, 2022 Assessment & Plan (1) S/P laparoscopic cholecystectomy: (2) Abdominal pain: Plan: Nancy is a 47-year-old female 5 days s/p outpatient Laparoscopic Cholecystectomy who developed sudden onset of severe abdominal pain 4 days post-op. Nancy remains afebrile. She reports that her abdominal pain is minimal. She denies nausea/vomiting. LFTs elevated on admission. Labs pending for this AM. No indication for emergent surgical intervention at this time. Will continue to monitor closely. Possible HIDA scan if possible today or tomorrow. Will keep patient NPO. Admission and Anticipated Discharge Date Admission Date: August 20, 2022 History of Present Illness Chief Complaint: Abdominal pain s/p Laparoscopic Cholecystectomy Primary Care Provider: VICENTE Tenorio Nancy is a 47-year-old female who underwent outpatient Laparoscopic Cholecystectomy with Dr. Garrido on 08/16/22 at [facility]. Nancy states that she was doing well until 3 days after the procedure she started to feel more tired and started to have several episodes of diarrhea. She states that yesterday, she was sitting in a recliner at home when she developed a sudden stabbing sensation in her chest/epigastric region. She states that she has never felt anything as painful before. The pain made her nauseous, but she did not throw up. She told her to call an ambulance because she was so concerned. She arrived at [facility] ED for evaluation. On arrival, WBC 8.29; Dir Bili 0.1; AST 250; ALT 248; ALK Phos 107. She has been afebrile since arrival. Imaging conducted in ED: CT abdomen/pelvis IMPRESSION: 1. Trace pneumoperitoneum which is postsurgical. Small amount of perihepatic/operative bed fluid. This is also within normal limits in the early postoperative setting. Other etiologies such as a bile leak are within the differential but considered less likely. 2. Top normal caliber common bile duct. This could be correlated with liver function tests. 3. No bowel obstruction. No bowel wall thickening. Normal appendix. Chest CTA: IMPRESSION: 1. No pulmonary emboli identified. 2. No acute intrathoracic findings. 3. Trace pneumoperitoneum and a small amount of fluid within the cholecystectomy bed. These findings are likely postoperative and better depicted on the CT of the abdomen and pelvis which will be reported separately. Currently, Nacny states that her abdominal pain is minimal. She is quick to comment that her abdominal pain feels muscular. Her last dose of pain medication was 4 hrs before I examined her. She denies nausea or vomiting. Allergies Allergy/AdvReac Type Severity Reaction Status Date / Time Sulfa (Sulfonamide Allergy Severe "SENSITIVE" Verified 08/20/22 17:59 Antibiotics) amoxicillin Allergy Intermediate ITCHY RASH Verified 08/20/22 17:59 AFTER 4 DAYS OF STARTING Home Medications Medication Instructions Recorded Confirmed Type medroxyprogesterone 150 mg/mL 150 mg IM .[id number] 08/28/18 08/20/22 History intramuscular syringe clonazepam 0.5 mg tablet 0.25 mg PO DAILY PRN Anxiety 12/16/19 08/20/22 History meclizine 25 mg tablet 25 mg PO DIRECTED PRN 12/16/19 08/20/22 History DIZZINESS/VERTIGO loperamide 2 mg capsule 2 mg PO Q6H PRN Diarrhea 07/07/22 08/20/22 History ondansetron 8 mg disintegrating 4 mg translingual Q8H PRN 07/07/22 08/20/22 History tablet NAUSEA/VOMITING acetaminophen 500 mg tablet 1,000 mg PO Q6H PRN Pain 08/20/22 08/20/22 History (Tylenol Extra Strength) Past Med/Surg History Medical History Closed fracture of lateral portion of left tibial plateau Dizziness of unknown etiology High-frequency hearing loss of left ear History of anemia Hydronephrosis with renal and ureteral calculus obstruction Renal colic Renal colic Seasonal allergies Surgical History [place] teeth extracted Family History Grandfather (Paternal) No problems noted. 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 How many Children do You have: 3 Other Information That Helps Us Care for You: No Feels Safe at Home: Yes Safety Concerns: Feels Safe At This Time during the past year weight has: remained stable Assistive Devices: None Review of Systems Constitutional: no fever and no chills Respiratory: no cough, no chest congestion, no dyspnea, no dyspnea on exertion and no wheezing Cardiovascular: no chest pain, no chest pain at rest, no chest pain with activity, no radiating jaw, neck or arm pain, no dyspnea, no dyspnea at rest, no dyspnea on exertion and no lightheadedness Gastrointestinal: + abdominal pain (improved since arrival. ); no nausea and no vomiting Physical Exam Constitutional: WD/WN, vitals as above Respiratory: normal respiratory effort; no respiratory distress and no labored breathing Gastrointestinal (Abdomen): Nancy is slightly tender with deep palpation in right upper quadrant. Abdomen is soft, not distended. Surgical incisions are clean, dry, intact and well- approximated with Dermabond in place. Results & Data Results & Data Vital Signs (Past 12 Hours) Vital Signs Temp Pulse Resp BP Pulse Ox O2 Del Method 08/21/22 02:18 37 C 72 16 104/62 98 Room Air 08/20/22 21:18 36.9 C 72 16 118/68 99 Room Air 08/20/22 20:18 36.9 C 75 16 124/72 99 Room Air 08/20/22 19:53 36.9 C 87 127/78 100 Room Air Code Status & VTE Plan VTE Prophylaxis Plan VTE Prophylaxis will be ordered: Yes Supervising Physician Co-Signing Physician Notes I personally saw and evaluated the patient with Marge Garrido PA-C and agree with the assessment and plan. 47-year-old female status post laparoscopic cholecystectomy with Dr. Garrido on August 16, 2022, here with postoperative pain CT images and results were personally viewed by myself, very small gallbladder fossa fluid collection and trace pneumoperitoneum She is admitted to the surgical service for observation overnight Her repeat LFTs this morning are improved and she is feeling much better We will trial diet and if she tolerates this we will discharge her home later today with follow-up with Dr. Garrido We are unable to obtain a HIDA scan today which I told her would be the definitive test to rule out a bile leak I do think it is a low likelihood she has a bile leak based on her improving LFTs and clinical picture If she is unable to tolerate her diet or has return of pain, we will keep her here in perform a HIDA scan tomorrow PG Care Time/CCT Total # of Minutes Spent Total Time Spent with Patient: Total time spent is greater than 50% in coordination of care (as documented) at patient's floor/unit and/or counseling patient: Coding Level of Care Code 26018 INT INP/OBS CARE 140MIN Diagnoses S/P laparoscopic cholecystectomy Z90.49 Abdominal pain R10.9
--- NOTE | 2022-08-21 07:34 | Electrocardiogram Report ---
Test Reason : Blood Pressure : / mmHG Vent. Rate : 069 BPM Atrial Rate : 069 BPM P-R Int : 128 ms QRS Dur : 096 ms QT Int : 400 ms P-R-T Axes : 074 043 069 degrees QTc Int : 428 ms Normal sinus rhythm Incomplete right bundle branch block Abnormal ECG When compared with ECG of 06-APR-2012 02:24, Incomplete right bundle branch block is now Present Confirmed by Logan Ponce ([id number]) on 08/21/2022 7:34:14 AM Referred By: Confirmed By:Abisai Ponce
[2022-08-21 08:08] LABS: Basophils # (auto) 0.02 K/uL (0-0.2); Basophils % (auto) 0.2 %; Eosinophils # (auto) 0.03 K/uL (0-0.50); Eosinophils % (auto) 0.3 %; Hematocrit (blood only) 38.4 % (37.0-47.0); Hemoglobin 12.9 g/dl (12.0-16.0); Immature Granulocytes # (auto) 0.04 K/uL (0.01-0.20); Immature Granulocytes % (auto) 0.5 %; Lymphocytes # (auto) 0.65 K/uL (1.2-3.4); Lymphocytes % (auto) 7.5 %; Mean Corpuscular Hemoglobin 29.6 pg (25.0-34.0); Mean Corpuscular Hgb Conc 33.6 g/dL (32.0-36.0); Mean Corpuscular Volume 88.1 fL (80.0-100.0); Mean Platelet Volume 12.2 fL (9.4-12.4); Monocytes # (auto) 0.68 K/uL (0.11-0.59); Monocytes % (auto) 7.9 %; Neutrophils # (auto) 7.23 K/uL (1.40-6.50); Neutrophils % (auto) 83.6 %; Platelet Count 179 K/uL (130-400); RDW Coefficient of Variation 12.5 % (11.5-14.5); Red Blood Count 4.36 M/uL (4.20-5.40); White Blood Count 8.65 K/ul (4.8-10.8)
[2022-08-21 08:34] LABS: Albumin Globulin Ratio 1.5 (0.9-2); BUN Creatinine Ratio 9.6 (10-20); Bilirubin,Total 0.9 mg/dl (0.2-1.0); Calcium 8.6 mg/dl (8.6-10.3); Creatinine Clr Calc Pharmacy 82.3 ml/min; Est GFR (African American) 113.7 ml/min; Est GFR (Non-African American) 98.1 ml/min; Globulin 2.6 gm/dl (2.5-4.0); Potassium 3.9 mmol/L (3.5-5.1); Total Protein 6.6 gm/dl (6.0-8.3)
--- NOTE | 2022-08-21 11:55 | Surgery Progress Note ---
Date of Service August 21, 2022 Assessment & Plan (1) S/P laparoscopic cholecystectomy: Plan: No return of abdominal pain following regular diet. She is able to be discharged to home. Order placed. Return precautions reviewed. She is going to call Dr. Garrido tomorrow morning to make him aware of recent hospitalization. (2) Abdominal pain: Admission and Anticipated Discharge Date Admission Date: August 20, 2022 Subjective Nancy is resting in bed, she tolerated a regular diet this AM. No additional episodes of abdominal pain. She denies any nausea. She feels that she is ready to go home. Physical Exam Constitutional: WD/WN, vitals as above Respiratory: normal respiratory effort; no respiratory distress and no labored breathing Gastrointestinal (Abdomen): Nancy is slightly tender with deep palpation in right upper quadrant. Abdomen is soft, not distended. Surgical incisions are clean, dry, intact and well- approximated with Dermabond in place. Results & Data Vital Signs (Past 12 Hours) Vital Signs Temp Pulse Resp BP Pulse Ox O2 Del Method 08/21/22 08:26 36.9 C 91 H 16 106/67 97 Room Air 08/21/22 02:18 37 C 72 16 104/62 98 Room Air PG Care Time/CCT Total # of Minutes Spent Total Time Spent with Patient: Total time spent is greater than 50% in coordination of care (as documented) at patient's floor/unit and/or counseling patient: Coding Level of Care Code 53209 SUB INP/OBS CARE 1/25MIN Diagnoses S/P laparoscopic cholecystectomy Z90.49 Abdominal pain R10.9
--- NOTE | 2022-08-31 12:10 | Discharge Summary ---
Date of Service August 21, 2022 Admission HPI Per Admitting Provider Nancy is a 47-year-old female who underwent outpatient Laparoscopic Cholecystectomy with Dr. Garrido on 08/16/22 at [facility]. Nancy states that she was doing well until 3 days after the procedure she started to feel more tired and started to have several episodes of diarrhea. She states that yesterday, she was sitting in a recliner at home when she developed a sudden stabbing sensation in her chest/epigastric region. She states that she has never felt anything as painful before. The pain made her nauseous, but she did not throw up. She told her to call an ambulance because she was so concerned. She arrived at [facility] ED for evaluation. On arrival, WBC 8.29; Dir Bili 0.1; AST 250; ALT 248; ALK Phos 107. She has been afebrile since arrival. Imaging conducted in ED: CT abdomen/pelvis IMPRESSION: 1. Trace pneumoperitoneum which is postsurgical. Small amount of perihepatic/operative bed fluid. This is also within normal limits in the early postoperative setting. Other etiologies such as a bile leak are within the differential but considered less likely. 2. Top normal caliber common bile duct. This could be correlated with liver function tests. 3. No bowel obstruction. No bowel wall thickening. Normal appendix. Chest CTA: IMPRESSION: 1. No pulmonary emboli identified. 2. No acute intrathoracic findings. 3. Trace pneumoperitoneum and a small amount of fluid within the cholecystectomy bed. These findings are likely postoperative and better depicted on the CT of the abdomen and pelvis which will be reported separately. Currently, Nancy states that her abdominal pain is minimal. She is quick to comment that her abdominal pain feels muscular. Her last dose of pain medication was 4 hrs before I examined her. She denies nausea or vomiting. Principal Diagnosis s/p laparoscopic cholecystectomy abdominal pain Discharge Exam Constitutional well developed and well nourished; no acute distress Respiratory + abnormal respiratory effort Gastrointestinal (Abdomen) Inspection/Auscultation: + abdominal surgical incision (c/d/i without signs of infection) Percussion/Palpation: + abdomen tender (slightly tender to deep palpation in the RUQ) and abdomen soft Discharge Data Allergies Allergy/AdvReac Type Severity Reaction Status Date / Time Sulfa (Sulfonamide Allergy Severe "SENSITIVE" Verified 08/20/22 17:59 Antibiotics) amoxicillin Allergy Intermediate ITCHY RASH Verified 08/20/22 17:59 AFTER 4 DAYS OF STARTING Consultations 08/20/22 16:31 ED Decision to Admit Stat 08/20/22 16:32 Consult General Surgery Routine Ordered Studies 08/20/22 14:36 CT abd pelvis IV con only Stat CT angio chest PE protocol Stat Hospital Course (1) S/P laparoscopic cholecystectomy: This is a 47y F recently s/p outpatient laparoscopic cholecystectomy on 08/16/[address] Garrido. Patient was discharged to home without issues. She later developed acute onset epigastric pain and nausea which prompted her to come into the ER on 08/20. She underwent a CT scan that revealed small amount of fluid in the operative bed, normal in post op setting, but cannot rule out bile leak as another etiology. Labs showed WBC 8, Tb 0.1, elevated AST 250 and ALT of 248. She was admitted for pain control and close observation. On 08/21 patient's pain and symptoms improved. LFTs down trending. She tolerated a diet. She felt clinically well and was deemed stable for discharge to home. (2) Abdominal pain: Total Time Total Time Spent Total Time Spent (In Minutes): 10 Discharge Plan Discharge Items Patient Disposition: Home - Self-Care Reason For Visit: CHEST/ ABD PAIN Discharge Diagnosis: Chest/Abdominal Pain Activity: As commented below Lifting: No more than 10 pounds Bathing: No limitations Sexual Activity: Wait until after follow-up appointment Exercise/Sports: Gradually increase as tolerated Non-emergency contact: Surgeon Call non-emergency contact if: you have any medication questions, your pain is not controlled, your temperature is above 101.5, your wound has increased redness and your wound has increased drainage Follow-up/Referrals: Sergio Garrido MD [Physician] - (Please call Dr. Garrido's office Monday morning, 08/22/2022 to make him aware of recent hospitalization. ) Mya Carrillo CRNP [Primary Care Provider] - Diet: Regular Addtl Attending Provider Instructions: Continue to keep activity light and call Dr. Garrido on 08/22/22 to update him on recent hospital stay. Pending Studies at Discharge: No Stand-Alone Forms: My [facility] [employer], Smoking Cessation Medications and DC Order Prescriptions: Continued meclizine 25 mg tablet 25 mg PO DIRECTED PRN (Reason: DIZZINESS/VERTIGO) clonazepam 0.5 mg tablet 0.25 mg PO DAILY PRN (Reason: Anxiety) medroxyprogesterone 150 mg/mL syringe 150 mg IM .[id number] loperamide 2 mg Capsule 2 mg PO Q6H PRN (Reason: Diarrhea) ondansetron 8 mg tablet,disintegrating 4 mg translingual Q8H PRN (Reason: NAUSEA/VOMITING) acetaminophen [Tylenol Extra Strength] 500 mg Tablet 1,000 mg PO Q6H PRN (Reason: Pain) Discharge Orders: Discharge Order (Routine); Ordered 08/21/22 Ordered By: Courtney Garrido Admission Data Admit Date/Time: 08/20/22 17:46 Attending Provider: Evens Thornton Admit Provider: Evens Thornton Primary Care Provider: Mya Carrillo Other Interventions: Discharge Summary Assessment (RN) Last Done: 08/21/22 12:19 Coding Level of Care Code 64577 IN/OBS DISCH 30 MIN/LESS Diagnoses S/P laparoscopic cholecystectomy Z90.49 Abdominal pain R10.9
== END 2022-08-21 12:56 | disposition home or self-care (01) ==
LOC: 3E 14:13 → ED 14:13 → 3E 19:29

== ENCOUNTER 2022-08-22 00:06 | Inpatient (IN) ==
[2022-08-22] MEDS ORDERED: DICYCLOMINE HCL 10 MG/ML 2 ML AMP/VIAL IM ONE (00:23)
[2022-08-22] MEDS ORDERED: ONDANSETRON INJ 2 MG/ML 2 ML VIAL IV STA (00:23)
[2022-08-22] MEDS ORDERED: ACETAMINOPHEN 1,000 MG/100 ML VIAL IV STA (00:23)
[2022-08-22] MEDS ORDERED: SODIUM CHLORIDE 0.9% 1000ML 1,000 ML IV STA (00:23)
--- NOTE | 2022-08-22 00:27 | Emergency Department Note ---
History of Present Illness General Chief complaint: Abdominal Pain Stated complaint: PAIN S/P SURGERY ON MONDAY Time Seen by Provider: 08/22/22 00:18 History of Present Illness Maximum Pain Intensity: 8 This 47-year-old female presents to the ER complaining of severe lower abdominal pain for the past hour who had a gallbladder removed 5 days ago at this facility. She was discharged earlier today. Patient denies chest pain, dyspnea, urinary symptoms, vomiting, diarrhea. No bowel movement today. Home Medications Medication Instructions Recorded Confirmed Type medroxyprogesterone 150 mg/mL 150 mg IM .[id number] 08/28/18 08/22/22 History intramuscular syringe clonazepam 0.5 mg tablet 0.25 mg PO DAILY PRN Anxiety 12/16/19 08/22/22 History meclizine 25 mg tablet 25 mg PO DIRECTED PRN 12/16/19 08/22/22 History DIZZINESS/VERTIGO loperamide 2 mg capsule 2 mg PO Q6H PRN Diarrhea 07/07/22 08/22/22 History ondansetron 8 mg disintegrating 4 mg translingual Q8H PRN 07/07/22 08/22/22 History tablet NAUSEA/VOMITING acetaminophen 500 mg tablet 1,000 mg PO Q6H PRN Pain 08/20/22 08/22/22 History (Tylenol Extra Strength) Allergies Allergy/AdvReac Type Severity Reaction Status Date / Time Sulfa (Sulfonamide Allergy Severe "SENSITIVE" Verified 08/20/22 17:59 Antibiotics) amoxicillin Allergy Intermediate ITCHY RASH Verified 08/20/22 17:59 AFTER 4 DAYS OF STARTING Past Med/Surg History Medical History Closed fracture of lateral portion of left tibial plateau Dizziness of unknown etiology High-frequency hearing loss of left ear History of anemia Hydronephrosis with renal and ureteral calculus obstruction Renal colic Renal colic Seasonal allergies Surgical History [place] teeth extracted Family History Grandfather (Paternal) No problems noted. 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 Beliefs That Will Affect Care: None marital status: Current Living Situation: Spouse current occupational status: employed 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 How many Children do You have: 3 Feels Safe at Home: Yes during the past year weight has: remained stable Assistive Devices: None Review of Systems A total of 10 systems reviewed and were otherwise negative Physical Exam Vital Signs Vital Signs - 24 hr 08/22/22 00:11 08/22/22 00:46 Temperature 36.8 C Temperature Source Temporal Artery Scan Pulse Rate 83 89 Respiratory Rate 18 18 Respiratory Effort / Characteristics Non-Labored Respiratory Depth Normal Blood Pressure 118/76 Blood Pressure Mean 90 Pulse Oximetry 99 98 Oxygen Delivery Method Room Air Sepsis Recent Fever Within 48 Hours No Sepsis New/Unexplained Change in Mental Status No Sepsis Action Taken by Nursing No Action Required VITALS: Vitals are noted on the nurse's note and reviewed by myself. Vital signs stable. GENERAL: Pleasant female who appears in pain, in no acute distress, nondiaphoretic, well-developed well-nourished. SKIN: The skin was without rashes, erythema, edema, or bruising. There is no tenting of the skin. Capillary reflex less than 2 seconds. HEAD: Normocephalic atraumatic. EARS: External auditory canals clear, EYES: Pupils equal round and reactive to light and accommodation. Conjunctivae without injection, sclerae without icterus. Extraocular movements intact. NOSE: Patent, turbinates without inflammation or discharge. MOUTH: Mucous membranes moist. Pharynx without erythema or exudate. Uvula midline. Airway patent. Tongue does not deviate. NECK: Supple without nuchal rigidity. No lymphadenopathy. No thyromegaly. Cervical spine is nontender. No JVD. HEART: Regular rate and rhythm LUNGS: Clear to auscultation bilaterally without wheezes, rales or rhonchi. No retractions or accessory muscle use. ABDOMEN: Positive bowel sounds x 4. Normal tympanic percussion. Soft, tender lower abdomen, without masses or organomegaly. Sutton sign negative. No guarding or rebound tenderness. No CVA tenderness MUSCULOSKELETAL: No muscle atrophy, erythema, or edema noted. NEURO: Patient was alert and oriented to person place and time. Normal sensation to light and sharp touch. No focal neurological deficits. Course Administered Medications Cefoxitin Sodium (Mefoxin) 2,000 mg in 60 mls @ 100 mls/hr IV NOW STA Stop: 08/22/22 05:01 Last Admin: 08/22/22 04:37 Dose: 100 mls/hr Documented By: CHEYENNE Discontinued Medications Dicyclomine HCl (Dicyclomine Hcl 10 Mg/Ml 2 Ml Amp/Vial) 20 mg IM NOW ONE Stop: 08/22/22 00:24 Last Admin: 08/22/22 00:36 Dose: 20 mg Documented By: CHEYENNE Sodium Chloride (Nss 1000ml) 1,000 mls @ 999 mls/hr IV .[id number] STA Stop: 08/22/22 01:23 Last Admin: 08/22/22 00:38 Dose: 999 mls/hr Documented By: CHEYENNE Acetaminophen (Ofirmev) 1,000 mg in 100 mls @ 400 mls/hr IV NOW STA Stop: 08/22/22 00:37 Last Infusion: 08/22/22 01:34 Dose: 0 mls/hr Documented By: Admin: 08/22/22 00:36 Dose: 400 mls/hr Documented By: CHEYENNE Ioversol (Optiray 320 500ml) 100 ml IV ONCE ONE Stop: 08/22/22 01:24 Last Admin: 08/22/22 01:24 Dose: 89 ml Documented By: JUSTIN Ondansetron HCl (Ondansetron Inj 2 Mg/Ml 2 Ml Vial) 4 mg IV NOW STA Stop: 08/22/22 00:24 Last Admin: 08/22/22 00:36 Dose: 4 mg Documented By: CHEYENNE Medical Decision Making Medical Records Attestation: I reviewed the patient's medical records. Home Medications Current Medication List: was personally reviewed by me Laboratory Data Attestation: I reviewed the patient's lab results. 08/22/22 00:42 08/22/22 00:42 Lab Results 08/22/22 08/22/22 08/22/22 Range/Units 00:42 00:42 00:42 WBC 7.77 (4.8-10.8) K/ul RBC 4.52 (4.20-5.40) M/uL Hgb 13.5 (12.0-16.0) g/dl Hct 39.4 (37.0-47.0) % MCV 87.2 (80.0-100.0) fL MCH 29.9 (25.0-34.0) pg MCHC 34.3 (32.0-36.0) g/dL RDW Std Deviation 40.9 (36.4-46.3) fL RDW Coeff of Karl 12.7 (11.5-14.5) % Plt Count 192 (130-400) K/uL MPV 12.2 (9.4-12.4) fL Immature Gran % (Auto) 0.3 % Neut % (Auto) 80.7 % Lymph % (Auto) 9.4 % [place] % (Auto) 9.0 % Eos % (Auto) 0.3 % Baso % (Auto) 0.3 % Neut # (Auto) 6.28 (1.40-6.50) K/uL Lymph # (Auto) 0.73 L (1.2-3.4) K/uL [place] # (Auto) 0.70 H (0.11-0.59) K/uL Eos # (Auto) 0.02 (0-0.50) K/uL Baso # (Auto) 0.02 (0-0.2) K/uL Immature Gran # (Auto) 0.02 (0.01-0.20) K/uL Sodium 136 (136-145) mmol/L Potassium 3.8 (3.5-5.1) mmol/L Chloride 103 (98-107) mmol/L Carbon Dioxide 24 (21-32) mmol/L Anion Gap 9 (3-11) BUN 8 (6-23) mg/dl Creatinine 0.74 (0.6-1.2) mg/dl Est Cr Clr Drug Dosing Not Reportable Est GFR ( Amer) 111.8 ml/min Est GFR (Non-Af Amer) 96.5 ml/min BUN/Creatinine Ratio 10.8 (10-20) Glucose 116 H (70-99(Fasting)) mg/dl Lactate 1.0 (0.4-2.0) mmol/L Calcium 9.2 (8.6-10.3) mg/dl Total Bilirubin 0.8 (0.2-1.0) mg/dl AST 58 H (13-39) U/L ALT 124 H (7-52) U/L Alkaline Phosphatase 91 (34-104) U/L Total Protein 7.4 (6.0-8.3) gm/dl Albumin 4.4 (3.4-5.0) gm/dl Globulin 3.0 (2.5-4.0) gm/dl Albumin/Globulin Ratio 1.5 (0.9-2) Lipase 20 (11-82) U/L HCG, Qual (Negative) Urine Color Urine Appearance (Clear) Urine pH (4.5-7.5) Ur Specific [place] (1.000-1.030) Urine Protein (Negative) Urine Glucose (UA) (Negative) Urine Ketones (Negative) Urine Blood (Negative) Urine Nitrite (Negative) Urine Bilirubin (Negative) Urine Urobilinogen (Negative) Ur Leukocyte Esterase (Negative) Urine WBC (Auto) (0-5) /hpf Urine RBC (Auto) (0-4) /hpf U Hyaline Cast (Auto) (0-5) /lpf U Epithel Cells (Auto) (0-5) /lpf Urine Bacteria (Auto) (Negative) SARS-CoV-2, RNA, NAAT (NEGATIVE) 08/22/22 08/22/22 08/22/22 Range/Units 00:42 00:50 03:03 WBC (4.8-10.8) K/ul RBC (4.20-5.40) M/uL Hgb (12.0-16.0) g/dl Hct (37.0-47.0) % MCV (80.0-100.0) fL MCH (25.0-34.0) pg MCHC (32.0-36.0) g/dL RDW Std Deviation (36.4-46.3) fL RDW Coeff of Karl (11.5-14.5) % Plt Count (130-400) K/uL MPV (9.4-12.4) fL Immature Gran % (Auto) % Neut % (Auto) % Lymph % (Auto) % [place] % (Auto) % Eos % (Auto) % Baso % (Auto) % Neut # (Auto) (1.40-6.50) K/uL Lymph # (Auto) (1.2-3.4) K/uL [place] # (Auto) (0.11-0.59) K/uL Eos # (Auto) (0-0.50) K/uL Baso # (Auto) (0-0.2) K/uL Immature Gran # (Auto) (0.01-0.20) K/uL Sodium (136-145) mmol/L Potassium (3.5-5.1) mmol/L Chloride (98-107) mmol/L Carbon Dioxide (21-32) mmol/L Anion Gap (3-11) BUN (6-23) mg/dl Creatinine (0.6-1.2) mg/dl Est Cr Clr Drug Dosing Est GFR ( Amer) ml/min Est GFR (Non-Af Amer) ml/min BUN/Creatinine Ratio (10-20) Glucose (70-99(Fasting)) mg/dl Lactate (0.4-2.0) mmol/L Calcium (8.6-10.3) mg/dl Total Bilirubin (0.2-1.0) mg/dl AST (13-39) U/L ALT (7-52) U/L Alkaline Phosphatase (34-104) U/L Total Protein (6.0-8.3) gm/dl Albumin (3.4-5.0) gm/dl Globulin (2.5-4.0) gm/dl Albumin/Globulin Ratio (0.9-2) Lipase (11-82) U/L HCG, Qual Negative (Negative) Urine Color Yellow Urine Appearance Clear (Clear) Urine pH 6.5 (4.5-7.5) Ur Specific [place] > 1.045 H (1.000-1.030) Urine Protein Negative (Negative) Urine Glucose (UA) Negative (Negative) Urine Ketones 1+ H (Negative) Urine Blood 1+ H (Negative) Urine Nitrite Negative (Negative) Urine Bilirubin Negative (Negative) Urine Urobilinogen Negative (Negative) Ur Leukocyte Esterase Negative (Negative) Urine WBC (Auto) 1-5 (0-5) /hpf Urine RBC (Auto) 5-10 H (0-4) /hpf U Hyaline Cast (Auto) 0 (0-5) /lpf U Epithel Cells (Auto) >30 H (0-5) /lpf Urine Bacteria (Auto) Negative (Negative) SARS-CoV-2, RNA, NAAT NEGATIVE (NEGATIVE) Imaging Data Attestation: I personally reviewed and interpreted this imaging study as follows: Radiologist's Impression: Abdomen/Pelvis CT 08/22/22 00:23 Exam(s): CT ABDOMEN + PELVIS With Contrast IV Amt: 89 ml optiray 320 EXAM: CT Abdomen and Pelvis With Intravenous Contrast CLINICAL HISTORY: Reason for exam: severe lower abd pain, recent GB. TECHNIQUE: Axial computed tomography images of the abdomen and pelvis with intravenous contrast. CTDI is 11.09 mGy and DLP is 546.78 mGy-cm. Automated exposure control was utilized for the study. A dose lowering technique was utilized adhering to the principles of ALARA. CONTRAST: Patient received 89 ml optiray 320 of IV contrast COMPARISON: 08/20/2022. FINDINGS: Lung bases: Bilateral lower lobe atelectasis. ABDOMEN: Liver: Unremarkable. No mass. Gallbladder and bile ducts: Status post cholecystectomy. Trace fluid along the medial aspect of the liver and gallbladder fossa, nonspecific given recent surgery. No ductal dilation. Pancreas: Unremarkable. No mass. No ductal dilation. Spleen: Unremarkable. No splenomegaly. Adrenals: Unremarkable. No mass. Kidneys and ureters: Several low-attenuation structures within the left kidney, largest seen in the lower pole measuring 1.4 cm consistent with simple cysts. Otherwise normal left kidney. Stomach and bowel: There is fluid within the colon which may indicate sequela of nonspecific enteritis versus malabsorption. Descending colon is decompressed. Mild nonspecific distention of proximal small bowel loops up to 2.4 cm with fluid within the lumen, cannot exclude mild ileus. PELVIS: Appendix: Normal appendix. Bladder: Unremarkable. No mass. Reproductive: Unremarkable as visualized. ABDOMEN and PELVIS: Intraperitoneal space: Mild ascites surrounding the liver. Mild to moderate free fluid in the cul-de-sac, slightly increased in size in the interval. No free air. Bones/joints: No acute fracture. No dislocation. Soft tissues: Unremarkable. Vasculature: Unremarkable. No abdominal aortic aneurysm. Lymph nodes: Unremarkable. No enlarged lymph nodes. IMPRESSION: 1. Status post recent surgical changes with status post cholecystectomy a small amount of fluid along the right liver margin, medial liver and gallbladder fossa, nonspecific in the context of recent surgery. However, cannot entirely exclude bile leak. If this represents a clinical concern, recommend follow-up with HIDA scan. 2. Nonspecific left-sided simple renal cyst, likely benign etiology with no further follow-up recommended. 3. Fluid within the colon with decompression of the descending portion, which may indicate sequela of nonspecific enteritis versus malabsorption. Cannot exclude small bowel ileus. Clinical correlation recommended. 4. No acute appendicitis. 5. Mild to moderate free fluid in the cul-de-sac, slightly increased in the interval and of indeterminate clinical significance. Electronically signed by: Keri Matta MD 08/22/22 04:08 AM MDM Narrative Prior records/ancillary studies reviewed. Triage Nursing notes reviewed. Additional history obtained from family. The patient's history was concerning for abdominal pain. Differential diagnosis: Etiologies such as postsurgical complication, appendicitis, diverticulitis, PUD, biliary pathology, UTI, pancreatitis, obstruction, mesenteric ischemia, aortic pathology, infections, inflammatory bowel disease, renal colic, as well as others were entertained. Physical examination findings: As above. ER treatment provided: An order was placed for continuous cardiac monitoring. The monitor shows a rate of 60-100 with a sinus rhythm per my Independent interpretation. IV fluids Zofran Tylenol Bentyl ordered On reassessment the patient felt better. Diagnostics interpreted by me: The labs Independently Interpreted by myself revealed improving LFTs, negative hCG, mild hyperglycemia without DKA No worrisome leukocytosis Imaging studies: CT was read by stat radiology and independently interpreted by myself. Patient is concerns for ileus and possible bile leak Consultation: A consultation was placed with the surgical PA. The case was discussed and diagnostics were reviewed. The patient was evaluated in the ER for further t reatment. Patient was admitted to the surgical service. Exam and history seem consistent with abdominal pain with concerns for possible ileus versus bile leak versus postop pain. Labs and diagnostics were independent by myself. Radiology read the CAT scan. Surgery was consulted and will readmit the patient. Patient was started on antibiotics. Patient is agreeable treatment plan of admission. No worrisome leukocytosis, LFTs are trending down. Urine was not infected. By the evaluation outlined above emergent etiologies such as appendicitis, diverticulitis, PUD, UTI, pancreatitis, obstruction, mesenteric ischemia, aortic pathology, inflammatory bowel disease, renal colic, as well as others were deemed relatively unlikely. The pt informed about the findings as listed above. All questions were answered and pleased with the treatment. The chart was completed utilizing [employer] Speech voice recognition software. Grammatical errors, random word insertions, pronoun errors, and incomplete sentences are an occassional consequence of this system due to software limitations, ambient noise, and hardware issues. Any formal questions or concerns about the content, text, or information contained within the body of this dictation should be directly addressed to the physician cancer genetics assistant for clarification. Impression & Plan Ileus, Abdominal pain, acute Discharge Plan Visit Data Chief Complaint: Abdominal Pain Stated Complaint: PAIN S/P SURGERY ON MONDAY ED Provider: Carlos Thompson ED Midlevel Provider: Zeinab Robison Discharge Problem: Ileus, Abdominal pain, acute Patient Disposition: Being Evaluated by Surgeon Condition: Good Forms Stand Alone Forms: [employer] Prescriptions Prescriptions: No Action meclizine 25 mg tablet 25 mg PO DIRECTED PRN (Reason: DIZZINESS/VERTIGO) clonazepam 0.5 mg tablet 0.25 mg PO DAILY PRN (Reason: Anxiety) medroxyprogesterone 150 mg/mL syringe 150 mg IM .[id number] loperamide 2 mg Capsule 2 mg PO Q6H PRN (Reason: Diarrhea) ondansetron 8 mg tablet,disintegrating 4 mg translingual Q8H PRN (Reason: NAUSEA/VOMITING) acetaminophen [Tylenol Extra Strength] 500 mg Tablet 1,000 mg PO Q6H PRN (Reason: Pain) Referrals Referrals: Mya Carrillo CRNP [Primary Care Provider] -
[2022-08-22 00:59] LABS: Basophils # (auto) 0.02 K/uL (0-0.2); Basophils % (auto) 0.3 %; Eosinophils # (auto) 0.02 K/uL (0-0.50); Eosinophils % (auto) 0.3 %; Hematocrit (blood only) 39.4 % (37.0-47.0); Hemoglobin 13.5 g/dl (12.0-16.0); Immature Granulocytes # (auto) 0.02 K/uL (0.01-0.20); Immature Granulocytes % (auto) 0.3 %; Lymphocytes # (auto) 0.73 K/uL (1.2-3.4); Lymphocytes % (auto) 9.4 %; Mean Corpuscular Hemoglobin 29.9 pg (25.0-34.0); Mean Corpuscular Hgb Conc 34.3 g/dL (32.0-36.0); Mean Corpuscular Volume 87.2 fL (80.0-100.0); Mean Platelet Volume 12.2 fL (9.4-12.4); Neutrophils # (auto) 6.28 K/uL (1.40-6.50); Neutrophils % (auto) 80.7 %; Platelet Count 192 K/uL (130-400); RDW Coefficient of Variation 12.7 % (11.5-14.5); RDW Standard Deviation 40.9 fL (36.4-46.3); Red Blood Count 4.52 M/uL (4.20-5.40); White Blood Count 7.77 K/ul (4.8-10.8)
[2022-08-22 01:08] LABS: Pregnancy Test, Serum Negative (Negative)
[2022-08-22 01:11] LABS: Alanine Aminotransferase 124 U/L (7-52); Albumin Globulin Ratio 1.5 (0.9-2); Albumin Level 4.4 gm/dl (3.4-5.0); Alkaline Phosphatase 91 U/L (34-104); Anion Gap 9 (3-11); Aspartate Aminotransferase 58 U/L (13-39); BUN Creatinine Ratio 10.8 (10-20); Bilirubin,Total 0.8 mg/dl (0.2-1.0); Blood Urea Nitrogen 8 mg/dl (6-23); Calcium 9.2 mg/dl (8.6-10.3); Carbon Dioxide 24 mmol/L (21-32); Chloride 103 mmol/L (98-107); Est GFR (African American) 111.8 ml/min; Est GFR (Non-African American) 96.5 ml/min; Glucose 116 mg/dl (70-99(Fasting)); Lipase 20 U/L (11-82); Potassium 3.8 mmol/L (3.5-5.1); Sodium 136 mmol/L (136-145); Total Protein 7.4 gm/dl (6.0-8.3)
[2022-08-22] MEDS ORDERED: OPTIRAY 320 500ml IV ONE (01:23)
[2022-08-22 03:54] LABS: Appearance Urine Clear (Clear); Bacteria Urine Automated Negative (Negative); Bilirubin Urine Negative (Negative); Blood Urine 1+ (Negative); Cast Urine Automated 0 /lpf (0-5); Color Urine Yellow; Epithelial Cell Urine Auto >30 /lpf (0-5); Glucose Urine UA Negative (Negative); Ketones Urine 1+ (Negative); Leukocyte Esterase Urine Negative (Negative); Nitrite Urine Negative (Negative); Protein Urine Negative (Negative); Specific Gravity Urine > 1.045 (1.000-1.030); Urobilinogen Urine Negative (Negative); pH Urine 6.5 (4.5-7.5)
--- NOTE | 2022-08-22 04:09 | CT Scan Report ---
Exam(s): CT ABDOMEN + PELVIS With Contrast IV Amt: 89 ml optiray 320 EXAM: CT Abdomen and Pelvis With Intravenous Contrast CLINICAL HISTORY: Reason for exam: severe lower abd pain, recent GB. TECHNIQUE: Axial computed tomography images of the abdomen and pelvis with intravenous contrast. CTDI is 11.09 mGy and DLP is 546.78 mGy-cm. Automated exposure control was utilized for the study. A dose lowering technique was utilized adhering to the principles of ALARA. CONTRAST: Patient received 89 ml optiray 320 of IV contrast COMPARISON: 08/20/2022. FINDINGS: Lung bases: Bilateral lower lobe atelectasis. ABDOMEN: Liver: Unremarkable. No mass. Gallbladder and bile ducts: Status post cholecystectomy. Trace fluid along the medial aspect of the liver and gallbladder fossa, nonspecific given recent surgery. No ductal dilation. Pancreas: Unremarkable. No mass. No ductal dilation. Spleen: Unremarkable. No splenomegaly. Adrenals: Unremarkable. No mass. Kidneys and ureters: Several low-attenuation structures within the left kidney, largest seen in the lower pole measuring 1.4 cm consistent with simple cysts. Otherwise normal left kidney. Stomach and bowel: There is fluid within the colon which may indicate sequela of nonspecific enteritis versus malabsorption. Descending colon is decompressed. Mild nonspecific distention of proximal small bowel loops up to 2.4 cm with fluid within the lumen, cannot exclude mild ileus. PELVIS: Appendix: Normal appendix. Bladder: Unremarkable. No mass. Reproductive: Unremarkable as visualized. ABDOMEN and PELVIS: Intraperitoneal space: Mild ascites surrounding the liver. Mild to moderate free fluid in the cul-de-sac, slightly increased in size in the interval. No free air. Bones/joints: No acute fracture. No dislocation. Soft tissues: Unremarkable. Vasculature: Unremarkable. No abdominal aortic aneurysm. Lymph nodes: Unremarkable. No enlarged lymph nodes. IMPRESSION: 1. Status post recent surgical changes with status post cholecystectomy a small amount of fluid along the right liver margin, medial liver and gallbladder fossa, nonspecific in the context of recent surgery. However, cannot entirely exclude bile leak. If this represents a clinical concern, recommend follow-up with HIDA scan. 2. Nonspecific left-sided simple renal cyst, likely benign etiology with no further follow-up recommended. 3. Fluid within the colon with decompression of the descending portion, which may indicate sequela of nonspecific enteritis versus malabsorption. Cannot exclude small bowel ileus. Clinical correlation recommended. 4. No acute appendicitis. 5. Mild to moderate free fluid in the cul-de-sac, slightly increased in the interval and of indeterminate clinical significance. Electronically signed by: Keri Matta MD 08/22/22 04:08 AM
[2022-08-22] MEDS ORDERED: cefOXitin 2,000 MG/60 ML BAG IV STA (04:26)
--- NOTE | 2022-08-22 04:55 | History & Physical Report ---
Date of Service August 22, 2022 Assessment & Plan (1) S/P laparoscopic cholecystectomy: Plan: Continued abdominal pain s/p laparoscopic cholecystectomy 6 days ago. Will readmit for continued monitoring. CT cannot exclude bile leak, while this is unlikely may consider HIDA in the AM. We discussed that her pain is more likely related to sluggish bowels after surgery combined with narcotic pain medications. She will be on bowel rest for now, ice chips OK. No indication for emergent surgery. We re-asses later this morning with Dr. Thornton. (2) Abdominal pain, acute: History of Present Illness Primary Care Provider: VICENTE Tenorio Nancy is a [age] being readmitted for abdominal pain following outpatient Laparoscopic Cholecystectomy with Dr. Garrido on 08/16/22 at [facility]. She did well post-operativley for the first 3 days, then developed diarrhea and fatigue. Monday, she was sitting in a recliner at home when she developed a sudden stabbing sensation in her chest/epigastric region. She states that she has never felt anything as painful before. The pain made her nauseous, but she did not throw up. She told her to call an ambulance because she was so concerned. She arrived at [facility] ED for evaluation. On arrival, WBC 8.29; Dir Bili 0.1; AST 250; ALT 248; ALK Phos 107. She has been afebrile since arrival. Imaging conducted in ED: CT abdomen/pelvis IMPRESSION: 1. Trace pneumoperitoneum which is postsurgical. Small amount of perihepatic/operative bed fluid. This is also within normal limits in the early postoperative setting. Other etiologies such as a bile leak are within the differential but considered less likely. 2. Top normal caliber common bile duct. This could be correlated with liver function tests. 3. No bowel obstruction. No bowel wall thickening. Normal appendix. Chest CTA: IMPRESSION: 1. No pulmonary emboli identified. 2. No acute intrathoracic findings. 3. Trace pneumoperitoneum and a small amount of fluid within the cholecystectomy bed. These findings are likely postoperative and better depicted on the CT of the abdomen and pelvis which will be reported separately. She was admitted but ultimately discharged Monday due to resolution of her abdominal pain. Monday morning she was tolerated regular diet, advised to follow-up with Dr. Garrido. She reports that once home, she began having severe abdominal pain and contractions. She described it feeling her whole abdomen was rock hard, sharp stabbing pains. She tried to alleviate the discomfort with heat, massage. She notes at this point she was not passing nay gas. She returned to the ED when pain would not go away. She had breakfast and lunch at the hospital, only applesauce at home. Of note, she states she has passed a significant amount of flatulence since being back in the ED and now feels great. Labs were repeated, and LFTs remain mildly elevated, but down from yesterday at AST 58, ALT 124. She is afebrile and WBC is normal at 7.7. She was using Tylenol with codeine at home for her abdominal pain. Repeat CT of abd/pelvis IMPRESSION: 1. Status post recent surgical changes with status post cholecystectomy a small amount of fluid along the right liver margin, medial liver and gallbladder fossa, nonspecific in the context of recent surgery. However, cannot entirely exclude bile leak. If this represents a clinical concern, recommend follow-up with HIDA scan. 2. Nonspecific left-sided simple renal cyst, likely benign etiology with no further follow-up recommended. 3. Fluid within the colon with decompression of the descending portion, which may indicate sequela of nonspecific enteritis versus malabsorption. Cannot exclude small bowel ileus. Clinical correlation recommended. 4. No acute appendicitis. 5. Mild to moderate free fluid in the cul-de-sac, slightly increased in the interval and of indeterminate clinical significance. Allergies Allergy/AdvReac Type Severity Reaction Status Date / Time Sulfa (Sulfonamide Allergy Severe "SENSITIVE" Verified 08/20/22 17:59 Antibiotics) amoxicillin Allergy Intermediate ITCHY RASH Verified 08/20/22 17:59 AFTER 4 DAYS OF STARTING Home Medications Medication Instructions Recorded Confirmed Type medroxyprogesterone 150 mg/mL 150 mg IM .[id number] 08/28/18 08/22/22 History intramuscular syringe clonazepam 0.5 mg tablet 0.25 mg PO DAILY PRN Anxiety 12/16/19 08/22/22 History meclizine 25 mg tablet 25 mg PO DIRECTED PRN 12/16/19 08/22/22 History DIZZINESS/VERTIGO loperamide 2 mg capsule 2 mg PO Q6H PRN Diarrhea 07/07/22 08/22/22 History ondansetron 8 mg disintegrating 4 mg translingual Q8H PRN 07/07/22 08/22/22 History tablet NAUSEA/VOMITING acetaminophen 500 mg tablet 1,000 mg PO Q6H PRN Pain 08/20/22 08/22/22 History (Tylenol Extra Strength) Past Med/Surg History Medical History Closed fracture of lateral portion of left tibial plateau Dizziness of unknown etiology High-frequency hearing loss of left ear History of anemia Hydronephrosis with renal and ureteral calculus obstruction Renal colic Renal colic Seasonal allergies Surgical History [place] teeth extracted Family History Grandfather (Paternal) No problems noted. 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 How many Children do You have: 3 Other Information That Helps Us Care for You: No Feels Safe at Home: Yes Safety Concerns: Feels Safe At This Time during the past year weight has: remained stable Assistive Devices: None Review of Systems All systems reviewed & are unremarkable except as noted in HPI & below no cough, no chest congestion and no dyspnea as per Subjective / HPI; no chest pain, no chest pain with activity and no radiating jaw, neck or arm pain Physical Exam Constitutional: WD/WN, vitals as above Eyes: PERRL, conjunctivae normal, anicteric sclerae Neck: trachea midline, no thyromegaly Cardiovascular: RRR, no murmur, no edema Gastrointestinal (Abdomen): normal bowel sounds, soft, nontender, no hepat osplenomegaly incisions CDI, no erythema, mild ecchymosis of umbical incision as expected s/p lap salome. non-tender to palpation Musculoskeletal: no cyanosis or clubbing, extremities motor strength 5/5 Skin: no rashes, warm and dry Results & Data Vital Signs (Past 12 Hours) Vital Signs Temp Pulse Resp BP Pulse Ox O2 Del Method 08/22/22 00:46 89 18 98 08/22/22 00:11 36.8 C 83 18 118/76 99 Room Air Diagnostic Findings CT Abd Pelvis 08/21/22 IMPRESSION: 1. Status post recent surgical changes with status post cholecystectomy a small amount of fluid along the right liver margin, medial liver and gallbladder fossa, nonspecific in the context of recent surgery. However, cannot entirely exclude bile leak. If this represents a clinical concern, recommend follow-up with HIDA scan. 2. Nonspecific left-sided simple renal cyst, likely benign etiology with no further follow-up recommended. 3. Fluid within the colon with decompression of the descending portion, which may indicate sequela of nonspecific enteritis versus malabsorption. Cannot exclude small bowel ileus. Clinical correlation recommended. 4. No acute appendicitis. 5. Mild to moderate free fluid in the cul-de-sac, slightly increased in the interval and of indeterminate clinical significance. Coding Level of Care Code 81134 INT INP/OBS CARE 255MIN Diagnoses S/P laparoscopic cholecystectomy Z90.49 Abdominal pain, acute R10.9
[2022-08-22] MEDS ORDERED: ONDANSETRON INJ 2 MG/ML 2 ML VIAL IV PRN (05:43)
[2022-08-22] MEDS ORDERED: MECLIZINE HCL 25 MG TAB PO PRN (05:43)
[2022-08-22] MEDS ORDERED: clonazePAM 0.25 MG TAB PO PRN (05:43)
[2022-08-22] MEDS ORDERED: traMADol HCL 50 MG TABLET PO PRN (05:43)
[2022-08-22] MEDS ORDERED: PROMETHAZINE HCL 25 MG in SODIUM CHLORIDE 0.9% 50 ML IV PRN (05:43)
[2022-08-22] MEDS ORDERED: PROMETHAZINE HCL 12.5 MG in SODIUM CHLORIDE 0.9% 50 ML IV PRN (05:43)
[2022-08-22] MEDS ORDERED: LOPERAMIDE HCL 2 MG CAP PO PRN (05:43)
[2022-08-22] MEDS ORDERED: ACETAMINOPHEN 500 MG TAB PO PRN (05:43)
[2022-08-22] MEDS: LACTATED RINGER'S 1,000 ML IV SCH ×2 (06:02→21:49)
--- NOTE | 2022-08-22 09:13 | Nuclear Medicine Report ---
NUCLEAR MEDICINE HEPATOBILIARY SCAN CLINICAL HISTORY: Abdominal pain status post cholecystectomy. Evaluate for bile leak. COMPARISON: CT of the abdomen and pelvis August 20, 2022 and August 22, 2022. TECHNIQUE: 5.6 mCi of technetium 99m Choletec IV was injected at 7:58 AM on August 22, 2022. Immediat manny following injection, imaging of the abdomen was carried out for 60 minutes in the anterior projec tion. Imaging was carried out for 45 minutes. No further imaging was performed given chest pain. FINDINGS: Hepatic uptake of radiotracer is prompt and homogeneous. Note is made radiotracer outlinin g the liver. There is also suspected radiotracer within the sky hepatis/cholecystectomy bed. There is minimal radiotracer within the common bile duct. IMPRESSION: Radiotracer within the sky hepatis and cholecystectomy bed as well as outlining the li leeanna consistent with a bile leak. ACT 112: Negative or not required by law. Electronically signed by: Adrian Matute M.D. 08/22/2022 9:12 AM
[2022-08-22] MEDS ORDERED: MoRPHine SULFATE 2 MG/ML CARP IV PRN (09:51)
[2022-08-22] MEDS: MoRPHine SULFATE 4 MG/ML 1 ML CARP\\VIAL IV PRN ×3 (10:06→15:56)
--- NOTE | 2022-08-22 10:37 | Discharge Summary ---
Date of Service August 22, 2022 Admission HPI Per Admitting Provider Nancy is a 47 yo female being readmitted for abdominal pain following outpatient Laparoscopic Cholecystectomy with Dr. Garrido on 08/16/22 at [facility]. She did well post-operatively for the first 3 days, then developed diarrhea and fatigue. Monday, she was sitting in a recliner at home when she developed a sudden stabbing sensation in her chest/epigastric region. She states that she has never felt anything as painful before. The pain made her nauseous, but she did not throw up. She told her to call an ambulance because she was so concerned. She arrived at [facility] ED for evaluation. On arrival, WBC 8.29; Dir Bili 0.1; AST 250; ALT 248; ALK Phos 107. She has been afebrile since arrival. She was admitted but ultimately discharged Monday due to resolution of her abdominal pain. Monday morning she was tolerated regular diet, advised to follow-up with Dr. Garrido. She reports that once home, she began having severe abdominal pain and contractions. She described it feeling her whole abdomen was rock hard, sharp stabbing pains. She tried to alleviate the discomfort with heat, massage. She notes at this point she was not passing nay gas. She returned to the ED when pain would not go away. She had breakfast and lunch at the hospital, only applesauce at home. Of note, she states she has passed a significant amount of flatulence since being back in the ED and now feels great. Labs were repeated, and LFTs remain mildly elevated, but down from yesterday at AST 58, ALT 124. She is afebrile and WBC is normal at 7.7. She was using Tylenol with codeine at home for her abdominal pain. Principal Diagnosis s/p laparoscopic cholecystectomy postoperative bile leak Discharge Exam Constitutional WD/WN, vitals as above cooperative and comfortable; no acute distress and not diaphoretic Respiratory normal respiratory effort; no respiratory distress, no labored breathing, no retractions and no cough Gastrointestinal (Abdomen) Inspection/Auscultation: abdomen normal to inspection; abdomen not distended Percussion/Palpation: + abdomen tender (RUQ and epigastrium); no guarding, abdomen not rigid and + abdomen not soft Skin no rashes, warm and dry no jaundice Psychiatric Orientation: alert and oriented x 3 Discharge Data Allergies Allergy/AdvReac Type Severity Reaction Status Date / Time Sulfa (Sulfonamide Allergy Severe "SENSITIVE" Verified 08/20/22 17:59 Antibiotics) amoxicillin Allergy Intermediate ITCHY RASH Verified 08/20/22 17:59 AFTER 4 DAYS OF STARTING Consultations 08/22/22 04:27 ED Decision to Admit Stat 08/22/22 08:48 Consult Hospitalist Routine Ordered Studies 08/22/22 00:23 CT abd pelvis IV con only Stat Hospital Course (1) Bile leak: (2) Abdominal pain: (3) Chest pain: Plan Patient readmitted to hospital Monday evening with recurrent severe abdominal pain after admission on 08/20/22. She is currently day 6 s/p outpatient laparoscopic cholecystectomy. Underwent HIDA scan this morning which showed postoperative bile leak. During HIDA scan she developed chest pain in which EKG, Troponin was ordered and hospitalist consulted for evaluation. EKG and Troponin wnl. Vitals signs stable and hemodynamically stable. Chest pain likely referred pain from bile leak. She was kept NPO, IV morphine and PO Tramadol and Tylenol prn pain, IV antiemetics as needed, IV Cipro and Flagyl were started, and IV fluids at 75 mls/hr. Given evidence of bile leak, she will need ERCP. Unfortunately, we do not have any advanced endoscopists available here at [facility] this week and will need transfer to another facility where ERCP capabilities/endoscopists are available. [facility]te[facility] was contacted and accepted patient. Total Time Total Time Spent Total Time Spent (In Minutes): 30 minutes Total Time Includes: Examination of the Patient, Discharge Planning and Communication With Other Providers Discharge Plan Discharge Items Patient Disposition: Transfer Acute Care Hospital Reason For Visit: ABDOMINAL PAIN Discharge Diagnosis: S/p laparoscopic cholecystectomy Postop bile leak Condition on Discharge: Good Activity: Per Instructions section Non-emergency contact: Primary Care Provider Call non-emergency contact if: you have any medication questions, your pain is worsening, your pain is concerning for you, your temperature is above 101, your wound has increased redness, your wound has increased drainage and your wound pain has increased Follow-up/Referrals: Sergio Garrido MD [Family Provider] - Mya Carrillo CRNP [Primary Care Provider] - Diet: Regular Addtl Attending Provider Instructions: Surgical discharge instructions: As per discharge instructions from the initial surgery. Keep your postoperative follow-up as scheduled with Dr. Garrido Monitor for fever, increasing pain, increasing nausea or vomiting and to call office at [phone] with any questions/concerns. Discharge instructions will be given from Brett Arteaga after your ERCP procedure Pending Studies at Discharge: No Stand-Alone Forms: My [facility] Skilled Items Patient informed of condition?: Yes DNR: No Discharge Level of Care: Other Communicable Disease: No Discharge Prognosis: Stable Lines: Peripheral IV Urinary Catheter: No Medications and DC Order Prescriptions: Continued meclizine 25 mg tablet 25 mg PO DIRECTED PRN (Reason: DIZZINESS/VERTIGO) clonazepam 0.5 mg tablet 0.25 mg PO DAILY PRN (Reason: Anxiety) medroxyprogesterone 150 mg/mL syringe 150 mg IM .[id number] loperamide 2 mg Capsule 2 mg PO Q6H PRN (Reason: Diarrhea) ondansetron 8 mg tablet,disintegrating 4 mg translingual Q8H PRN (Reason: NAUSEA/VOMITING) acetaminophen [Tylenol Extra Strength] 500 mg Tablet 1,000 mg PO Q6H PRN (Reason: Pain) Discharge Orders: Discharge Order (Routine); Ordered 08/22/22 Ordered By: Tawny Flores Admission Data Admit Date/Time: 08/22/22 05:00 Attending Provider: Evens Thornton Admit Provider: Evens Thornton Primary Care Provider: Mya Carrillo Other Providers: Evens Thornton ; Kennedy Reed ; Jenny Conroy ; Jose Francisco Samaniego ; Ernesto Mo ; Asher Abdi ; Kris Bhagat ; Jules Nolan ; Li Partida ; Pamela Still ; Crow Mancilla ; Lata Patel ; Chaparro Roland ; Juju Haines ; Carlos [place] ; Kushal Ceballos ; Zeinab Rosen ; Jenny Roach ; Courtney Webb ; Damon Dinh ; Jose Francisco Santiago ; Maritza Pina ; Michael Contreras ; Harika Bender ; Ovi Frausto ; Shahab Khanna ; Antonia Delong ; Alonso Fong ; Dannie Omer ; Miriam Sanchez ; Pasquale Cooney ; Ernesto Lomeli ; Asher Vigil
[2022-08-22] MEDS ORDERED: MoRPHine SULFATE 4 MG/ML 1 ML CARP\\VIAL IV STA (11:25)
--- NOTE | 2022-08-22 11:26 | Consultation ---
Date of Consultation August 22, 2022 Assessment & Plan (1) Chest pain: CTA chest was negative for acute PE, pneumonia, edema or other findings to explain her pain. Troponin from 0900 this am was negative. EKG with no ischemic changes. I suspect that her pain is related to her bile leak. Some of her pain could be reflux related given her concurrent ileus and poor GI motility at the present time. She has no symptoms or signs of acute pericarditis, PE, ACS, etc. Will check 1 more troponin and if negative her pain was unlikely ischemic in nature. Will add pepcid 20mg IV BID in the event some of her chest symptoms were from GERD. (2) Bile leak: The [facility] GI physicians who typically perform ERCP at [facility] are not available and, by report, she will therefore be transferred to [facility] for ERCP & stent placement. The bile leak is the likely explanation for her presenting abdominal pain, transaminitis, etc. (3) Ileus: Clinically she has an ileus. No stool in several days. She had diarrhea last week but this resolved several days ago. Very little flatus over the last few days until this am. Continue IV fluids and supportive care. (4) Abdominal pain, acute: 2nd to #2. See above. (5) Transaminitis: Likely 2nd to #2. AST/ALT improved today. Her t.bili is normal making a CBD obstruction from a retained gallstone unlikely. If patient has not transferred to [facility] by the am will recheck LFTs in am. Plan Thank you for this consult. Care d/w Tawny GAMBOA with the general surgery team. History of Present Illness Requesting Physician: Evens Thornton DO Reason for Consultation: chest pain Attending Physician: Evens Thornton DO History of Present Illness Mrs Cardenas is a pleasant 47yo female with no significant PMH who underwent outpatient Laparoscopic Cholecystectomy with Dr. Garrido on 08/16/22 at [facility]. She was discharged in usual fashion post-op to home with her family. She was doing ok until about three days post-op when she developed fatigue & diarrhea. About post-op day #4 she started having abdominal pain in the upper abdomen with some radiation to the lower chest in the midline and slightly off to the left. She came to the ER on 08/21 for this pain and was admitted for observation purposes by the surgical service. She improved and was tolerating a diet yesterday afternoon and thus she was d/c to home. However, she worsened once again last pm and returned to [facility] late in the day on 08/21. This am while undergoing a HIDA scan she again had severe upper abdominal pain that radiated to the lower chest - similar in location to prior episodes of chest discomfort that she has had since a few days ago. No dyspnea. No orthopnea. No true pleuritic chest pain. When I saw her on the surgical floor she was resting in the bed but was quite uncomfortable due to the abdominal pain. Fortunately the chest pain had resolved while in radiology. HIDA scan confirmed that the patient has a bile leak. The patient denies any history of GERD but has noted some belching. No vomiting today. Was not passing gas yesterday but started to have such this am. No further diarrhea. Allergies Allergy/AdvReac Type Severity Reaction Status Date / Time Sulfa (Sulfonamide Allergy Severe "SENSITIVE" Verified 08/20/22 17:59 Antibiotics) amoxicillin Allergy Intermediate ITCHY RASH Verified 08/20/22 17:59 AFTER 4 DAYS OF STARTING Home Medications Medication Instructions Recorded Confirmed Type medroxyprogesterone 150 mg/mL 150 mg IM .[id number] 08/28/18 08/22/22 History intramuscular syringe clonazepam 0.5 mg tablet 0.25 mg PO DAILY PRN Anxiety 12/16/19 08/22/22 History meclizine 25 mg tablet 25 mg PO DIRECTED PRN 12/16/19 08/22/22 History DIZZINESS/VERTIGO loperamide 2 mg capsule 2 mg PO Q6H PRN Diarrhea 07/07/22 08/22/22 History ondansetron 8 mg disintegrating 4 mg translingual Q8H PRN 07/07/22 08/22/22 History tablet NAUSEA/VOMITING acetaminophen 500 mg tablet 1,000 mg PO Q6H PRN Pain 08/20/22 08/22/22 History (Tylenol Extra Strength) Patient History Medical History (Updated 08/22/22 @ 11:35 by Jose Francisco Samaniego MD) Closed fracture of lateral portion of left tibial plateau Dizziness of unknown etiology High-frequency hearing loss of left ear History of anemia Hydronephrosis with renal and ureteral calculus obstruction Seasonal allergies Surgical History (Updated 08/22/22 @ 11:32 by Jose Francisco Samaniego MD) S/P laparoscopic cholecystectomy 08/16/22 - Brett Sommers - Sergio Garrido MD Floris teeth extracted Family History Grandfather (Paternal) No problems noted. Grandmother (Paternal) Stroke Mother Cancer Colorectal cancer Father Diabetes Denies family history of Hearing loss No family history of adverse response to anesthesia No family history of bleeding disorder Allergies Hypertension Asthma Social History Smoking Status: Never smoker Second Hand Exposure: No; Do You Dip or Chew Tobacco: No; Hx Alcohol Use: No Hx Substance Use: No Preferred Language: Croatian Communication Ability: Effective Emergency Room Specialist Required: No Beliefs That Will Affect Care: None marital status: Current Living Situation: Spouse current occupational status: employed 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 How many Children do You have: 3 Other Information That Helps Us Care for You: No Feels Safe at Home: Yes Safety Concerns: Feels Safe At This Time during the past year weight has: remained stable Assistive Devices: None Review of Systems Review of Systems: gen - no fevers, appetite loss off/on since surgery depending on her GI symptoms HENT - no URI symptoms CV - chest discomfort per the HPI; no orthopnea; no edema pulm - no cough, dyspnea or MUSA GI - severe upper abdominal pain with nausea; recent diarrhea now resolved; no vomiting - no dysuria musculo - some back pain when she has had her abdominal pain spells skin - no rash endo - no diabetes neuro - no focal weakness Physical Exam Physical Exam: gen - uncomfortable due to abdominal pain but nontoxic, awake/alert HENT - MMM, no lesions neck - no JVD, no lymphadenopathy heart - RRR, s1 s2, no murmur lungs - CTA b/l chest - no reproducible chest wall tenderness to palpation abd - soft, tender to palpation high epigastric region, BS+, no HSM, ND ext - no edema, pulses 2+ b/l neuro - strength 5/5 x 4 exts skin - no jaundice psych - a/o x 3 Results & Data Vital Signs (Past 12 Hours) Vital Signs Temp Pulse Pulse Resp BP BP Pulse Ox 08/22/22 09:15 37.0 C 77 18 132/72 98 08/22/22 07:51 37.0 C 77 16 108/63 97 08/22/22 05:46 37 C 79 16 107/67 97 08/22/22 05:00 74 19 104/54 L 97 08/22/22 04:30 72 20 114/66 96 08/22/22 04:00 71 19 111/62 96 08/22/22 03:31 76 20 103/68 97 08/22/22 02:47 82 19 08/22/22 00:46 89 18 98 08/22/22 00:11 36.8 C 83 18 118/76 99 O2 Del Method 08/22/22 09:15 Room Air 08/22/22 07:51 Room Air 08/22/22 05:46 Room Air 08/22/22 05:00 08/22/22 04:30 08/22/22 04:00 08/22/22 03:31 08/22/22 02:47 08/22/22 00:46 08/22/22 00:11 Room Air Laboratory Results Laboratory Results - last 24 hr 08/22/22 08/22/22 08/22/22 00:42 00:42 00:42 WBC 7.77 RBC 4.52 Hgb 13.5 Hct 39.4 MCV 87.2 MCH 29.9 MCHC 34.3 RDW Std Deviation 40.9 RDW Coeff of Karl 12.7 Plt Count 192 MPV 12.2 Immature Gran % (Auto) 0.3 Neut % (Auto) 80.7 Lymph % (Auto) 9.4 [place] % (Auto) 9.0 Eos % (Auto) 0.3 Baso % (Auto) 0.3 Neut # (Auto) 6.28 Lymph # (Auto) 0.73 L [place] # (Auto) 0.70 H Eos # (Auto) 0.02 Baso # (Auto) 0.02 Immature Gran # (Auto) 0.02 Sodium 136 Potassium 3.8 Chloride 103 Carbon Dioxide 24 Anion Gap 9 BUN 8 Creatinine 0.74 Est Cr Clr Drug Dosing Not Reportable Est GFR ( Amer) 111.8 Est GFR (Non-Af Amer) 96.5 BUN/Creatinine Ratio 10.8 Glucose 116 H Lactate 1.0 Calcium 9.2 Total Bilirubin 0.8 AST 58 H ALT 124 H Alkaline Phosphatase 91 Troponin I High Sens Total Protein 7.4 Albumin 4.4 Globulin 3.0 Albumin/Globulin Ratio 1.5 Lipase 20 HCG, Qual Urine Color Urine Appearance Urine pH Ur Specific Patterson Urine Protein Urine Glucose (UA) Urine Ketones Urine Blood Urine Nitrite Urine Bilirubin Urine Urobilinogen Ur Leukocyte Esterase Urine WBC (Auto) Urine RBC (Auto) U Hyaline Cast (Auto) U Epithel Cells (Auto) Urine Bacteria (Auto) SARS-CoV-2, RNA, NAAT 08/22/22 08/22/22 08/22/22 00:42 00:50 03:03 WBC RBC Hgb Hct MCV MCH MCHC RDW Std Deviation RDW Coeff of Karl Plt Count MPV Immature Gran % (Auto) Neut % (Auto) Lymph % (Auto) [place] % (Auto) Eos % (Auto) Baso % (Auto) Neut # (Auto) Lymph # (Auto) [place] # (Auto) Eos # (Auto) Baso # (Auto) Immature Gran # (Auto) Sodium Potassium Chloride Carbon Dioxide Anion Gap BUN Creatinine Est Cr Clr Drug Dosing Est GFR ( Amer) Est GFR (Non-Af Amer) BUN/Creatinine Ratio Glucose Lactate Calcium Total Bilirubin AST ALT Alkaline Phosphatase Troponin I High Sens Total Protein Albumin Globulin Albumin/Globulin Ratio Lipase HCG, Qual Negative Urine Color Yellow Urine Appearance Clear Urine pH 6.5 Ur Specific Patterson > 1.045 H Urine Protein Negative Urine Glucose (UA) Negative Urine Ketones 1+ H Urine Blood 1+ H Urine Nitrite Negative Urine Bilirubin Negative Urine Urobilinogen Negative Ur Leukocyte Esterase Negative Urine WBC (Auto) 1-5 Urine RBC (Auto) 5-10 H U Hyaline Cast (Auto) 0 U Epithel Cells (Auto) >30 H Urine Bacteria (Auto) Negative SARS-CoV-2, RNA, NAAT NEGATIVE 08/22/22 09:04 WBC RBC Hgb Hct MCV MCH MCHC RDW Std Deviation RDW Coeff of Karl Plt Count MPV Immature Gran % (Auto) Neut % (Auto) Lymph % (Auto) [place] % (Auto) Eos % (Auto) Baso % (Auto) Neut # (Auto) Lymph # (Auto) [place] # (Auto) Eos # (Auto) Baso # (Auto) Immature Gran # (Auto) Sodium Potassium Chloride Carbon Dioxide Anion Gap BUN Creatinine Est Cr Clr Drug Dosing Est GFR ( Amer) Est GFR (Non-Af Amer) BUN/Creatinine Ratio Glucose Lactate Calcium Total Bilirubin AST ALT Alkaline Phosphatase Troponin I High Sens 3.1 Total Protein Albumin Globulin Albumin/Globulin Ratio Lipase HCG, Qual Urine Color Urine Appearance Urine pH Ur Specific Patterson Urine Protein Urine Glucose (UA) Urine Ketones Urine Blood Urine Nitrite Urine Bilirubin Urine Urobilinogen Ur Leukocyte Esterase Urine WBC (Auto) Urine RBC (Auto) U Hyaline Cast (Auto) U Epithel Cells (Auto) Urine Bacteria (Auto) SARS-CoV-2, RNA, NAAT Diagnostic Findings EKG - my reading - NSR, IRBBB, no ST changes; no changes in comparison to prior EKG Abdomen/Pelvis CT 08/22/22 00:23 Exam(s): CT ABDOMEN + PELVIS With Contrast IV Amt: 89 ml optiray 320 EXAM: CT Abdomen and Pelvis With Intravenous Contrast CLINICAL HISTORY: Reason for exam: severe lower abd pain, recent GB. TECHNIQUE: Axial computed tomography images of the abdomen and pelvis with intravenous contrast. CTDI is 11.09 mGy and DLP is 546.78 mGy-cm. Automated exposure control was utilized for the study. A dose lowering technique was utilized adhering to the principles of ALARA. CONTRAST: Patient received 89 ml optiray 320 of IV contrast COMPARISON: 08/20/2022. FINDINGS: Lung bases: Bilateral lower lobe atelectasis. ABDOMEN: Liver: Unremarkable. No mass. Gallbladder and bile ducts: Status post cholecystectomy. Trace fluid along the medial aspect of the liver and gallbladder fossa, nonspecific given recent surgery. No ductal dilation. Pancreas: Unremarkable. No mass. No ductal dilation. Spleen: Unremarkable. No splenomegaly. Adrenals: Unremarkable. No mass. Kidneys and ureters: Several low-attenuation structures within the left kidney, largest seen in the lower pole measuring 1.4 cm consistent with simple cysts. Otherwise normal left kidney. Stomach and bowel: There is fluid within the colon which may indicate sequela of nonspecific enteritis versus malabsorption. Descending colon is decompressed. Mild nonspecific distention of proximal small bowel loops up to 2.4 cm with fluid within the lumen, cannot exclude mild ileus. PELVIS: Appendix: Normal appendix. Bladder: Unremarkable. No mass. Reproductive: Unremarkable as visualized. ABDOMEN and PELVIS: Intraperitoneal space: Mild ascites surrounding the liver. Mild to moderate free fluid in the cul-de-sac, slightly increased in size in the interval. No free air. Bones/joints: No acute fracture. No dislocation. Soft tissues: Unremarkable. Vasculature: Unremarkable. No abdominal aortic aneurysm. Lymph nodes: Unremarkable. No enlarged lymph nodes. IMPRESSION: 1. Status post recent surgical changes with status post cholecystectomy a small amount of fluid along the right liver margin, medial liver and gallbladder fossa, nonspecific in the context of recent surgery. However, cannot entirely exclude bile leak. If this represents a clinical concern, recommend follow-up with HIDA scan. 2. Nonspecific left-sided simple renal cyst, likely benign etiology with no further follow-up recommended. 3. Fluid within the colon with decompression of the descending portion, which may indicate sequela of nonspecific enteritis versus malabsorption. Cannot exclude small bowel ileus. Clinical correlation recommended. 4. No acute appendicitis. 5. Mild to moderate free fluid in the cul-de-sac, slightly increased in the interval and of indeterminate clinical significance. Electronically signed by: Keri Matta MD 08/22/22 04:08 AM Hepatobiliary Scan Nuclear Medicine 08/22/22 06:59 NUCLEAR MEDICINE HEPATOBILIARY SCAN CLINICAL HISTORY: Abdominal pain status post cholecystectomy. Evaluate for bile leak. COMPARISON: CT of the abdomen and pelvis August 20, 2022 and August 22, 2022. TECHNIQUE: 5.6 mCi of technetium 99m Choletec IV was injected at 7:58 AM on August 22, 2022. Immediately following injection, imaging of the abdomen was carried out for 60 minutes in the anterior projection. Imaging was carried out for 45 minutes. No further imaging was performed given chest pain. FINDINGS: Hepatic uptake of radiotracer is prompt and homogeneous. Note is made radiotracer outlining the liver. There is also suspected radiotracer within the sky hepatis/cholecystectomy bed. There is minimal radiotracer within the common bile duct. IMPRESSION: Radiotracer within the sky hepatis and cholecystectomy bed as well as outlining the liver consistent with a bile leak. ACT 112: Negative or not required by law. Electronically signed by: Adrian Matute M.D. 08/22/2022 9:12 AM PG Care Time/CCT Total # of Minutes Spent Total Time Spent with Patient: Total time spent is greater than 50% in coordination of care (as documented) at patient's floor/unit and/or counseling patient: Coding Level of Care Code 44188 IN/OBS CONSULT LVL 2,35M Diagnoses Chest pain R07.9 Bile leak K83.9 Ileus K56.7 Abdominal pain, acute R10.9 Transaminitis R74.01
[2022-08-22] MEDS ORDERED: FAMOTIDINE 20 MG in SYRINGE 3 ML IV ONE (11:30)
[2022-08-22] MEDS: CIPROFLOXACIN / D5W 400 MG/200 ML BAG IV SCH (13:49)
[2022-08-22] MEDS: metroNIDAZOLE 500 MG/100 ML BAG IV SCH ×2 (13:50→21:55)
[2022-08-22] MEDS ORDERED: HYDROmorphone INJ 0.5 MG/0.5 ML SYR IV STA (14:14)
--- NOTE | 2022-08-22 18:01 | Electrocardiogram Report ---
Test Reason : Blood Pressure : / mmHG Vent. Rate : 075 BPM Atrial Rate : 075 BPM P-R Int : 100 ms QRS Dur : 096 ms QT Int : 386 ms P-R-T Axes : -01 063 069 degrees QTc Int : 431 ms Sinus rhythm Incomplete right bundle branch block Borderline ECG When compared with ECG of 20-AUG-2022 14:23, Minimal criteria for Anteroseptal infarct are no longer Present Confirmed by Logan Ponce ([id number]) on 08/22/2022 6:01:24 PM Referred By: REFERRED SELF Confirmed By:Abisai Ponce
[2022-08-22] MEDS: HYDROmorphone INJ 0.5 MG/0.5 ML SYR IV PRN ×2 (18:04→21:54)
[2022-08-22] MEDS ORDERED: FAMOTIDINE 20 MG in SYRINGE 3 ML IV SCH (21:00)
[2022-08-23] MEDS: CIPROFLOXACIN / D5W 400 MG/200 ML BAG IV SCH (01:01)
== END 2022-08-23 02:15 | disposition short-term general hospital (02) | DRG 394 ==
LOC: ED 00:06 → 3W 05:00